=== PATIENT | female | born 1940 | race Caucasian/White ===

== ENCOUNTER 2016-04-30 10:17 | Emergency (ER) | payer MEDICARE, OTHER ==
[~2016-04-30] VITALS: Ht 160 cm; Wt 55.2 kg
[~2016-04-30 10:17] MED LIST: ALLO100T PO; ASPI81TA2 PO; ATEN-39 PO; CINA30TA2 PO; GABA-338 PO; HYDR-3989 PO; HYDR-4181 PO; LIDO5CRE14 TOP; OMEP20CA81 PO; PRAV20TA4 PO; SEVE800T9 PO
[2016-04-30 10:20] VITALS: Ht 160 cm; Wt 55.2 kg
--- OUTSIDE RECORDS SUMMARY | 2016-04-30 10:21 | XMS REPORT | Continuity of Care Document ---
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 If you do not see the information that you expected, contact Release of Information in the Health Information Management department at [phone] for further assistance in locating additional records.[facility] Active Allergies and Adverse Reactions Not on File Current Medications Not on file Active Problems Not on file Social History Tobacco Use Types Packs/Day Years Used Date Never Assessed Plan of Care Health Maintenance Due Date Last Done Comments Physical (Comprehensive) 1949 Exam Pertussis Vaccine 1953 Tetanus Vaccine 10/05/1959 Breast Cancer Screening 1982 Colorectal Cancer 1992 Screening Shingles Vaccine 2002 Osteoporosis Screening 10/05/2007 Prevnar/Pneumovax (#1) 10/05/2007 Influenza Vaccine 10/11/2015 Results from Last 3 Months Not on file
--- OUTSIDE RECORDS SUMMARY | 2016-04-30 10:21 | XMS REPORT | Referral Summary ---
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 Discharge Disposition: 01-Home or Self Care Attending Physician: Shasha Valencia MD Admitting Physician: Shasha Valencia MD Vital Signs Most recent to 1 oldest [Reference Range]: Temperature Oral 36.8 degC [35.8-37.3 degC] (07/12/15 11:16 AM) Temperature Skin 36.4 degC [36-37 degC] (07/10/15 5:08 PM) Peripheral Pulse 60 bpm Rate [60-100 bpm] (07/12/15 11:16 AM) Heart Rate Monitored 52 bpm [60-100 bpm] *LOW* (07/10/15 5:08 PM) Respiratory Rate 18 br/min [14-20 br/min] (07/12/15 11:16 AM) Blood Pressure 131/65 mmHg [90-140/60-90 mmHg] (07/12/15 11:16 AM) Mean Arterial 97 mmHg Pressure, Cuff (07/10/15 4:45 PM) Pulse Rate [60-100 64 bpm bpm] (07/12/15 9:20 AM) SpO2 91 % (07/12/15 11:16 AM) Problem List Condition Effective Dates Status Health Status Informant Acute Resolved pain(Confirmed) At risk for Resolved falls(Confirmed)1 Benign essential Resolved HTN(Confirmed) Benign essential Active hypertension(Confirm ed) Abnormal blood Active sugar(Confirmed) Bowel Resolved dysfunction(Confirme d)2 Pain in Resolved rib(Confirmed) 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) Renal dialysis Active status(Confirmed) Fluid Resolved imbalance(Confirmed) 3 Heart Resolved failure(Confirmed) Hypertension(Confirm Active ed) Impaired skin Resolved integrity(Confirmed) 4 Ineffective airway Resolved clearance(Confirmed) 5 Internal Active hemorrhoids(Confirme d) Irritable bowel Active syndrome (IBS)(Confirmed) Kidney 2009 Active disease(Confirmed) Kidney Active stones(Confirmed) Knowledge Resolved deficit(Confirmed)6 Breast 06/05/15 Active cancer(Confirmed)7 Renal dialysis Resolved status(Confirmed) Rheumatic Active fever(Confirmed) Rheumatoid Active arthritis(Confirmed) Chronic left Active shoulder pain(Confirmed) Current every day Active smoker(Confirmed) Varicella Active zoster(Confirmed) 1This problem was added by Discern Expert. 2Problem added automatically by system based on initiation of Bowel Dysfunction Plan of Care 3Problem added automatically by system based on initiation of Fluid Volume Imbalance Plan of Care 4Problem added automatically by system based on initiation of Impaired Skin Integrity Plan of Care 5Problem added automatically by system based on initiation of Ineffective Airway Clearance Plan of Care 6Problem added automatically by system based on initiation of Knowledge Deficit Plan of Care 7left, poorly differentiated ductal, with medullary features, Grade lll/lll Allergies, Adverse Reactions, Alerts Substance Reaction Severity Status tuberculin purified Tube attachment to cup Active protein derivative Tube attachment to cup Medications albuterol 90 mcg/inh inhalation powder 2 puffs, Inhalation, q4hr, # 1 Each, 0 Refill(s) Start Date: 03/28/15 Status: Ordered allopurinol 100 mg oral tablet 3 tabs, Oral, Daily, 0 Refill(s) Start Date: 08/16/13 Status: Ordered amLODIPine 5 mg oral tablet 1 tabs, Oral, Daily, # 90 tabs, 0 Refill(s) Start Date: 08/16/13 Status: Ordered atenolol 50 mg oral tablet 1 tabs, Oral, Daily, 0 Refill(s) Start Date: 08/16/13 Status: Ordered gabapentin 600 mg, Oral, Bedtime (once a day), 0 Refill(s) Start Date: 03/26/15 Status: Ordered hydrALAZINE 50 mg oral tablet 50 mg 1 tabs, Oral, BID, 0 Refill(s) Start Date: 03/26/15 Status: Ordered Nephro-Zheng 1 tabs, Oral, Daily, 0 Refill(s) Start Date: 07/06/15 Status: Ordered [place] 5 mg-325 mg oral tablet See Instructions, 1-2 tabs po q 8 hours prn. Must last 30 days., # 60 tabs, 0 Refill(s) Start Date: 06/05/15 Status: Ordered omeprazole 20 mg oral delayed release capsule 20 mg 1 caps, Oral, BID, 0 Refill(s) Start Date: 03/26/15 Status: Ordered oxyCODONE-acetaminophen 5 mg-325 mg oral tablet 1-2 tabs, Oral, q4hr, Pain Moderate (4-6), 0 Refill(s) Start Date: 07/11/15 Status: Ordered Sensipar 30 mg oral tablet 1 tabs, Oral, Daily, 0 Refill(s) Start Date: 04/28/14 Status: Ordered sevelamer carbonate 800 mg oral tablet 2 tabs, Oral, TID, with meals, 0 Refill(s) Start Date: 04/28/14 Status: Ordered Results Hematology Most recent to 1 oldest [Reference Range]: WBC [4.8-10.8 7.7 10*3/uL 10*3/uL] (07/11/15 1:59 PM) RBC [4.00-5.20] 3.38 *LOW* (07/11/15 1:59 PM) Hgb [12.0-16.0 10.9 gm/dL gm/dL] *LOW* (07/11/15 1:59 PM) Hct [37.0-47.0 %] 34.1 % *LOW* (07/11/15 1:59 PM) MCV [82.0-99.0 fL] 100.9 fL *HI* (07/11/15 1:59 PM) MCH [27.0-32.0 pg] 32.2 pg *HI* (07/11/15 1:59 PM) MCHC [32.0-36.0 32.0 gm/dL gm/dL] (07/11/15 1:59 PM) RDW [11.5-14.5 %] 13.8 % (07/11/15 1:59 PM) Platelet [150-400 200 10*3/uL 10*3/uL] (07/11/15 1:59 PM) MPV [9.4-12.4 fL] 10.7 fL (07/11/15 1:59 PM) Immature 0.1 % Granulocytes (07/11/15 1:59 PM) [0.0-1.0 %] Neutrophils [51-75 62 % %] (07/11/15 1:59 PM) Lymphocytes [20-46 28 % %] (07/11/15 1:59 PM) Monocytes [4-11 %] 9 % (07/11/15 1:59 PM) Eosinophils [0-4 %] 1 % (07/11/15 1:59 PM) Basophils [0-2 %] 0 % (07/11/15 1:59 PM) Neutro Absolute 4.80 10*3 [1.90-7.00 10*3] (07/11/15 1:59 PM) Lymph Absolute 2.16 10*3 [0.80-3.30 10*3] (07/11/15 1:59 PM) [place] Absolute 0.67 10*3 [0.30-1.00 10*3] (07/11/15 1:59 PM) Eos Absolute 0.06 10*3 [0.00-0.50 10*3] (07/11/15 1:59 PM) Baso Absolute 0.02 10*3 [0.00-0.20 10*3] (07/11/15 1:59 PM) Nucleated RBC 0.0 /100 WBC Automated [0 /100 (07/11/15 1:59 PM) WBC] Chemistry Most recent to 1 oldest [Reference Range]: Sodium Lvl [136-144 136 mEq/L mEq/L] (07/12/15 5:50 AM) Potassium Lvl 4.7 mEq/L [3.6-5.1 mEq/L] (07/12/15 5:50 AM) Chloride [99-109 100 mEq/L mEq/L] (07/12/15 5:50 AM) CO2 [22-32 mEq/L] 29 mEq/L (07/12/15 5:50 AM) AGAP [3-20] 7 (07/12/15 5:50 AM) BUN [4-20 mg/dL] 21 mg/dL *HI* (07/12/15 5:50 AM) Glucose Lvl [70-100 93 mg/dL mg/dL] (07/12/15 5:50 AM) Creatinine Lvl 4.95 mg/dL [0.44-1.03 mg/dL] *HI* (07/12/15 5:50 AM) eGFR [>60] 9 1 *ABN* (07/12/15 5:50 AM) Calcium Lvl 8.4 mg/dL [8.6-10.0 mg/dL] *LOW* (07/12/15 5:50 AM) Albumin Lvl [3.5-4.8 3.0 gm/dL gm/dL] *LOW* (07/12/15 5:50 AM) Phosphorus [2.4-4.7 4.5 mg/dL 2 mg/dL] (07/12/15 5:50 AM) Sodium Venous 134 mEq/L [136-144 mEq/L] *LOW* (07/10/15 1:00 PM) Potassium Venous 4.7 mEq/L 3 [3.6-5.1 mEq/L] (07/10/15 1:00 PM) Calcium Ionized 1.15 mmol/L Venous [1.19-1.41 *LOW* mmol/L] (07/10/15 1:00 PM) Total CO2 Venous 25 mEq/L [25-29 mEq/L] (07/10/15 1:00 PM) HGB Venous NPT 12.6 gm/dL [12.0-16.0 gm/dL] (07/10/15 1:00 PM) HCT Venous 37.0 % [37.0-47.0 %] (07/10/15 1:00 PM) Glucose Venous 88 mg/dL [70-100 mg/dL] (07/10/15 1:00 PM) BUN Venous [4-20] 29 *HI* (07/10/15 1:00 PM) Creatinine Venous 5.4 mg/dL [0.4-1.0 mg/dL] *HI* (07/10/15 1:00 PM) Venous CL [99-109 97 mEq/L mEq/L] *LOW* (07/10/15 1:00 PM) Anion Gap, [place] 12 [3-20] (07/10/15 1:00 PM) Blood Glucose, 97 mg/dL Capillary [70-100 (07/10/15 9:11 AM) mg/dL] Hep Bs Ag Negative (07/11/15 8:49 AM) 1Result Comment: Multiply eGFR results by 1.21 for race. 2Result Comment: High dosages of liposomal Amphotericin B (AmBisome) therapy or other drug preparations that use a liposomal envelope to facilitate drug delivery may cause falsely elevated results for phosphorus. 3Result Comment: This test was performed on a whole blood specimen. The presence or absence of hemolysis cannot be assessed. Hemolysis can falsely elevate potassium levels. Normals are for venous specimens only. Immunizations No data available for this section Procedures Procedure Date Related Diagnosis Body Site Injection procedure; radioactive tracer for 07/10/15 identification of sentinel node Mastectomy Modified Radical with [place] 07/10/15 Node Biopsy (Left)1 Bilateral tubal ligation Blood transfusion Colonoscopy Dialysis patient Heart cath Kidney surgery Left arm dialysis fistula Stent 1auto-populated from documented surgical case Social History Social History Type Response Smoking Status Former smoker; Type: Cigarettes Assessment and Plan No data available for this section
--- OUTSIDE RECORDS SUMMARY | 2016-04-30 10:21 | XMS REPORT | Referral Summary ---
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 Role Phone Alexei Bullock Primary Care Physician [phone] Encounter VC Date(s): 06/05/15 - 06/05/15 [facility] [address] [place] [address] [place] [id number]- Discharge Diagnosis: Breast lump on left side at 3 o'clock position Discharge Disposition: 01-Home or Self Care Attending Physician: Dion Garcia MD Admitting Physician: Dion Garcia MD Referring Physician: Merlin Bullock MD Vital Signs Most recent to 1 oldest [Reference Range]: Temperature Tympanic 37.2 degC [36.6-38.1 degC] (06/05/15 1:56 PM) Blood Pressure 142/70 mmHg [90-140/60-90 mmHg] *HI* (06/05/15 1:56 PM) Problem List Condition Effective Dates Status Health Status Informant At risk for Resolved falls(Confirmed)1 Benign essential Resolved HTN(Confirmed) Benign essential Active hypertension(Confirm ed) Abnormal blood Active sugar(Confirmed) Bowel Active dysfunction(Confirme d)2 Pain in Resolved rib(Confirmed) 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) Renal dialysis Active status(Confirmed) Fluid Active imbalance(Confirmed) 3 Heart Active failure(Confirmed) Hypertension(Confirm Active ed) Ineffective airway Active clearance(Confirmed) 4 Internal Active hemorrhoids(Confirme d) Irritable bowel Active syndrome (IBS)(Confirmed) Kidney 2009 Active disease(Confirmed) Kidney Active stones(Confirmed) Knowledge Active deficit(Confirmed)5 Renal dialysis Resolved status(Confirmed) Rheumatic Active fever(Confirmed) [...] of Ineffective Airway Clearance Plan of Care 5Problem added automatically by system based on initiation of Knowledge Deficit Plan of Care Allergies, Adverse Reactions, Alerts Substance Reaction Severity Status tuberculin purified Tube attachment to cup Active protein derivative Tube attachment to cup Medications Advair Diskus 250 mcg-50 mcg inhalation powder 1 puffs, Inhalation, BID, # 28 Each, 0 Refill(s) Start Date: 03/28/15 Status: Ordered albuterol 90 mcg/inh inhalation powder 2 puffs, Inhalation, q4hr, # 1 Each, 0 Refill(s) Start Date: 03/28/15 Status: Ordered allopurinol 100 mg oral tablet 3 tabs, Oral, Daily, 0 Refill(s) Start Date: 08/16/13 Status: Ordered amLODIPine 5 mg oral tablet 1 tabs, Oral, Daily, # 90 tabs, 0 Refill(s) Start Date: 08/16/13 Status: Ordered aspirin 81 mg, Oral, Daily, 0 Refill(s) Start Date: 03/26/15 Status: Ordered atenolol 50 mg oral tablet 1 tabs, Oral, Daily, 0 Refill(s) Start Date: 08/16/13 Status: Ordered Benadryl 25 mg, Oral, BID, as needed for itching, 0 Refill(s) Start Date: 12/11/14 Status: Ordered cholecalciferol 2,000 Intl_Units, Oral, Daily, 0 Refill(s) Start Date: 04/28/14 Status: Ordered gabapentin 600 mg, Oral, Bedtime (once a day), 0 Refill(s) Start Date: 03/26/15 Status: Ordered hydrALAZINE 50 mg oral tablet 50 mg 1 tabs, Oral, BID, 0 Refill(s) Start Date: 03/26/15 Status: Ordered [place] 5 mg-325 mg oral tablet See Instructions, 1-2 tabs po q 8 hours prn. Must last 30 days., # 60 tabs, 0 Refill(s) Start Date: 06/05/15 Status: Ordered omeprazole 20 mg oral delayed release capsule 20 mg 1 caps, Oral, BID, 0 Refill(s) Start Date: 03/26/15 Status: Ordered Pravachol 20 mg oral tablet 1 tabs, Oral, Daily, # 90 tabs, 0 Refill(s) Start Date: 08/16/13 Status: Ordered Sensipar 30 mg oral tablet 1 tabs, Oral, Daily, 0 Refill(s) Start Date: 04/28/14 Status: Ordered sevelamer carbonate 800 mg oral tablet 2 tabs, Oral, TID, with meals, 0 Refill(s) Start Date: 04/28/14 Status: Ordered Results No data available for this section Immunizations No data available for this section Procedures Procedure Date Related Diagnosis Body Site Bilateral tubal ligation Blood transfusion Colonoscopy Dialysis patient Heart cath Kidney surgery Left arm dialysis fistula Stent Social History Social History Type Response Smoking Status Former smoker; Type: Cigarettes Assessment and Plan Extracted from: Title: Ambulatory Patient Education Author: Dion Garcia MD Date: Family Medicine Breast Biopsy A breast biopsy is a procedure where a sample of breast tissue is removed from your breast. The tissue is examined under a microscope to see if cancerous cells are present. A breast biopsy is done when there is: Any undiagnosed breast mass (tumor). Nipple abnormalities, dimpling, crusting, or ulcerations. Abnormal discharge from the nipple, especially blood. Redness, swelling, and pain of the breast. Calcium deposits (calcifications) or abnormalities seen on a mammogram, ultrasound result, or results of magnetic resonance imaging (MRI). Suspicious changes in the breast seen on your mammogram. If the tumor is found to be cancerous (malignant), a breast biopsy can help to determine what the best treatment is for you. There are many different types of breast biopsies. Talk to your caregiver about your options and which type is best for you. LET YOUR CAREGIVER KNOW ABOUT: Allergies to food or medicine. Medicines taken, including vitamins, herbs, eyedrops, [id number] medicines, and creams. Use of steroids (by mouth or creams). Previous problems with anesthetics or numbing medicines. History of bleeding problems or blood clots. Previous surgery. Other health problems, including diabetes and kidney problems. Any recent colds or infections. Possibility of , if this applies. RISKS AND COMPLICATIONS Bleeding. Infection. Allergy to medicines. Bruising and swelling of the breast. Alteration in the shape of the breast. Not finding the lump or abnormality. Needing more surgery. BEFORE THE PROCEDURE Arrange for someone to drive you home after the procedure. Do not smoke for 2 weeks before the procedure. Stop smoking, if you smoke. Do not drink alcohol for 24 hours before procedure. Wear a good support bra to the procedure. PROCEDURE You may be given a medicine to numb the breast area (local anesthesia) or a medicine to make you sleep (general anesthesia) during the procedure. The following are the different types of biopsies that can be performed. Fine-needle aspirationA thin needle is attached to a syringe and inserted into the breast lump. Fluid and cells are removed and then looked at under a microscope. If the breast lump cannot be felt, an ultrasound may be used to help locate the lump and place the needle in the correct area. Core needle biopsyA wide, hollow needle (core needle) is inserted into the breast lump 36 times to get tissue samples or cores. The samples are removed. The needle is usually placed in the correct area by using an ultrasound or X-ray. Stereotactic biopsyX-ray equipment and a computer are used to analyze X-ray pictures of the breast lump. The computer then finds exactly where the core needle needs to be inserted. Tissue samples are removed. Vacuum-assisted biopsyA small incision (less than inch) is made in your breast. A biopsy device that includes a hollow needle and vacuum is passed through the incision and into the breast tissue. The vacuum gently draws abnormal breast tissue into the needle to remove it. This type of biopsy removes a larger tissue sample than a regular core needle biopsy. No stitches are needed, and there is usually little scarring. Ultrasound-guided core needle biopsyA high frequency ultrasound helps guide the core needle to the area of the mass or abnormality. An incision is made to insert the needle. Tissue samples are removed. Open biopsyA larger incision is made in the breast. Your caregiver will attempt to remove the whole breast lump or as much as possible. AFTER THE PROCEDURE You will be taken to the recovery area. If you are doing well and have no problems, you will be allowed to go home. You may notice bruising on your breast. This is normal. Your caregiver may apply a pressure dressing on your breast for 2448 hours. A pressure dressing is a bandage that is wrapped tightly around the chest to stop fluid from collecting underneath tissues. This information is not intended to replace advice given to you by your health care provider. Make sure you discuss any questions you have with your health care provider. Document Released: 01/26/2006 Document Revised: 05/23/2013 Document Reviewed: [employer] Patient Information 2015 [employer], [facility]. No follow up information was provided.
--- OUTSIDE RECORDS SUMMARY | 2016-04-30 10:21 | XMS REPORT | Referral Summary ---
Author Author [facility], [facility] Organization [facility] Address Unknown Phone Unavailable Care Team Providers Care Wireless Development Manager Name Role Phone Berniechelle Alexei Primary Care Physician [phone] Encounter VC Date(s): 12/11/14 - 12/11/14 [facility] [address] [place] [address]- Discharge Diagnosis: Acute contact dermatitis Discharge Disposition: 01-Home or Self Care Attending Physician: Dodie Ferguson PA-C Admitting Physician: Dodie Ferguson PA-C Vital Signs Most recent to 1 oldest [Reference Range]: Temperature Tympanic 37.2 degC [36.6-38.1 degC] (12/11/14 3:35 PM) Peripheral Pulse 62 bpm Rate [60-100 bpm] (12/11/14 3:35 PM) Respiratory Rate 16 br/min [14-20 br/min] (12/11/14 3:35 PM) Blood Pressure 144/70 mmHg [90-140/60-90 mmHg] *HI* (12/11/14 3:35 PM) SpO2 94 % (12/11/14 3:35 PM) Problem List Condition Effective Dates Status Health Status Informant Benign essential Resolved HTN(Confirmed) Benign essential Active hypertension(Confirm ed) Bowel Active dysfunction(Confirme d)1 Pain in Active rib(Confirmed) 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) Renal dialysis Active status(Confirmed) Fluid Active imbalance(Confirmed) 2 Heart Active failure(Confirmed) Hypertension(Confirm Active ed) Internal Active hemorrhoids(Confirme d) Irritable bowel Active syndrome (IBS)(Confirmed) Kidney 2009 Active disease(Confirmed) Kidney Active stones(Confirmed) Renal dialysis Resolved status(Confirmed) Rheumatic Active fever(Confirmed) Rheumatoid Active arthritis(Confirmed) Chronic left Active shoulder pain(Confirmed) Varicella Active zoster(Confirmed) 1Problem added automatically by system based on initiation of Bowel Dysfunction Plan of Care 2Problem added automatically by system based on initiation of Fluid Volume Imbalance Plan of Care Allergies, Adverse Reactions, Alerts Substance Reaction Severity Status tuberculin purified Tube attachment to cup Active protein derivative Tube attachment to cup Medications allopurinol 100 mg oral tablet 3 tabs, [...] Refill(s) Start Date: 04/28/14 Status: Ordered gabapentin 300 mg oral capsule See Instructions, TAKE 1 BY MOUTH IN THE MORNING AND 2 IN THE EVEN- ING, # 270 unknown unit, 2 Refill(s), eRx: [facility], TAKE 1 BY MOUTH IN THE MORNING AND 2 IN THE EVEN- ING Start Date: 10/27/14 Status: Ordered [place] 5 mg-325 mg oral tablet 1-2 tabs, Oral, TID, as needed for pain, # 60 tabs, 0 Refill(s) Start Date: 10/17/14 Status: Ordered Pravachol 20 mg oral tablet 1 tabs, Oral, Daily, # 90 tabs, 0 Refill(s) Start Date: 08/16/13 Status: Ordered predniSONE 20 mg oral tablet 20 mg 1 tabs, Oral, Daily, X 5 days, # 5 tabs, 0 Refill(s), Pharmacy: [facility] #[id number], 1 tabs Oral Daily,x5 days Start Date: 12/11/14 Stop Date: 12/16/14 Status: Ordered Sensipar 30 mg oral tablet [...] Extracted from: Title: Ambulatory Patient Education Author: Dodie Ferguson PA-C Date : 12/11/14 Allergy Contact Dermatitis Contact dermatitis is a reaction to certain substances that touch the skin. Contact dermatitis can be either irritant contact dermatitis or allergic contact dermatitis. Irritant contact dermatitis does not require previous exposure to the substance for a reaction to occur.Allergic contact dermatitis only occurs if you have been exposed to the substance before. Upon a repeat exposure, your body reacts to the substance. CAUSES Many substances can cause contact dermatitis. Irritant dermatitis is most commonly caused by repeated exposure to mildly irritating substances, such as: Makeup. Soaps. Detergents. Bleaches. Acids. Metal salts, such as nickel. Allergic contact dermatitis is most commonly caused by exposure to: Poisonous plants. Chemicals (deodorants, shampoos). Jewelry. Latex. Neomycin in triple antibiotic cream. Preservatives in products, including clothing. SYMPTOMS The area of skin that is exposed may develop: Dryness or flaking. Redness. Cracks. Itching. Pain or a burning sensation. Blisters. With allergic contact dermatitis, there may also be swelling in areas such as the eyelids, mouth, or genitals. DIAGNOSIS Your caregiver can usually tell what the problem is by doing a physical exam. In cases where the cause is uncertain and an allergic contact dermatitis is suspected, a patch skin test may be performed to help determine the cause of your dermatitis. TREATMENT Treatment includes protecting the skin from further contact with the irritating substance by avoiding that substance if possible. Barrier creams, powders, and gloves may be helpful. Your caregiver may also recommend: Steroid creams or ointments applied 2 times daily. For best results, soak the rash area in cool water for 20 minutes. Then apply the medicine. Cover the area with a plastic wrap. You can store the steroid cream in the refrigerator for a "chilly" effect on your rash. That may decrease itching. Oral steroid medicines may be needed in more severe cases. Antibiotics or antibacterial ointments if a skin infection is present. Antihistamine lotion or an antihistamine taken by mouth to ease itching. Lubricants to keep moisture in your skin. Burow's solution to reduce redness and soreness or to dry a weeping rash. Mix one packet or tablet of solution in 2 cups cool water. Dip a clean washcloth in the mixture, wring it out a bit, and put it on the affected area. Leave the cloth in place for 30 minutes. Do this as often as possible throughout the day. Taking several cornstarch or baking soda baths daily if the area is too large to cover with a washcloth. Harsh chemicals, such as alkalis or acids, can cause skin damage that is like a burn. You should flush your skin for 15 to 20 minutes with cold water after such an exposure. You should also seek immediate medical care after exposure. Bandages (dressings), antibiotics, and pain medicine may be needed for severely irritated skin. HOME CARE INSTRUCTIONS Avoid the substance that caused your reaction. Keep the area of skin that is affected away from hot water, soap, sunlight , chemicals, acidic substances, or anything else that would irritate your skin. Do not scratch the rash. Scratching may cause the rash to become infected. You may take cool baths to help stop the itching. Only take dkid-ctd-[id number] or prescription medicines as directed by your caregiver. See your caregiver for follow-up care as directed to make sure your skin is healing properly. SEEK MEDICAL CARE IF: Your condition is not better after 3 days of treatment. You seem to be getting worse. You see signs of infection such as swelling, tenderness, redness, soreness , or warmth in the affected area. You have any problems related to your medicines. Document Released: 01/23/2001 Document Revised: 04/19/2012 Document Reviewed: ExitCare Patient Information 2015 [employer]. This information is not intended to replace advice given to you by your health care provider. Make sure you discuss any questions you have with your health care provider. No follow up information was provided. Extracted from: Title: Office Visit Note Author: Dodei Ferguson PA-C Date: 12/11/14 Assessment/Plan Acute contact dermatitis I believe this is due to some allergen she was exposed [place]. She is given Solu-Medrol 80mg IM in clinic and will continue on prednisone for 5 days. She can also continue taking Benadryl prn. She is advised to go to ED if she has any tongue swelling or feelings of throat closing. Ordered: Office Visit Level 3 Est 42659 Swelling See above Orders: predniSONE, 20 mg 1 tabs, Oral, Daily, X 5 days, # 5 tabs, 0 Refill(s) , Pharmacy: [facility] #[id number], 1 tabs Oral Daily,x5 days
--- OUTSIDE RECORDS SUMMARY | 2016-04-30 10:21 | XMS REPORT ---
Author Author Jai Suarez Organization [facility] Address [address] [place] [address] Care Team Providers Care Paint Pourer Name Role Phone Jai Suarez Unavailable [phone] PROBLEMS Type Condition ICD9-CM Code OVJ60-SY Code Onset Dates Condition Status SNOMED Code Problem Dyslipidemia E78.5 Active 975785718 Problem PVD (peripheral vascular disease) I73.9 Active 816648038 Problem Hypertension I10 Active 21627312 Problem Chronic anticoagulation Z79.01 Active 942541525 Problem Pre-operative cardiovascular examination V72.81 Active 088439296 Problem Dyspnea on effort R06.09 Active 54366351 Problem Atrial fibrillation I48.91 Active 46713597 Problem CAD (coronary artery disease) I25.10 Active 88895975 Problem Persistent atrial fibrillation I48.1 Active 527039664 Problem Pre-operative cardiovascular examination Z01.810 Active 793717661 Problem Hypertension 401.9 Active 05107800 Problem Peripheral Vascular Disease 443.9 Active 747660437 Problem Carotid Bruit 785.9 Active 915665134 Problem Murmur 785.2 Active 368619780 Problem Aortic Valve Stenosis 424.1 Active 32022771 Problem End stage renal disease 585.6 Active 58229600 Problem Coronary Artery Disease 414.01 Active 17293795 Problem Mitral regurgitation I34.0 Active 69412000 Problem Dyslipidemia 272.4 Active 643721507 Problem Carotid bruit R09.89 Active 109387907 ALLERGIES Unknown Allergies SOCIAL HISTORY No smoking Hx information available PLAN OF CARE VITAL SIGNS MEDICATIONS Medication Instructions Dosage Frequency Start Date End Date Duration Status Coumadin 5 MG Orally Once a day or as directed 1 tablet 90 days Active RESULTS No Results PROCEDURES No Known procedures IMMUNIZATIONS No Known Immunizations
--- OUTSIDE RECORDS SUMMARY | 2016-04-30 10:21 | XMS REPORT | Continuity of Care Document ---
Author Author Kobe FRANCO, Merlin ANG [facility] Ambulatory Address [address] [place] [address] Dr India Blackman [facility] [place] [address] Phone Care Team Providers Care Driver Trainee Name Role Phone Merlin Bullock PP Unavailable Payers Payer name Insurance type Covered green party ID Authorization(s) Unknown Problems Condition Effective Dates (start - stop) Clinical Status Cervicalgia - *Acute Lumbago - *Acute Pain in joint involving shoulder region - *Acute Pain in limb - *Acute Hypertension, Benign - *Chronic Other and unspecified hyperlipidemia - *Chronic RENAL DIALYSIS STATUS - *Chronic CHRONIC PAIN NEC - *Chronic RENAL & URETERAL DIS NOS - Fever - *Acute Bronchitis, acute - *Acute Tobacco use - *Chronic Hypertension, benign - *Controlled Renal dialysis status - *Controlled Bronchitis, Acute - *Acute Pneumonia - *Acute COPD - *Chronic Tobacco Abuse - *Chronic RENAL DIALYSIS STATUS - *Chronic COPD - Chronic Hypertension, benign - *Chronic Renal dialysis status - *Chronic Renal failure, unspecified - *Chronic RENAL DIALYSIS STATUS - *Chronic Other and unspecified hyperlipidemia - *Chronic OTHER ABNORMAL GLUCOSE - *Chronic Tobacco Abuse - *Resolved Gout, unspecified - *Chronic Diabetes with other specified manifestations, type II or unspecified type, not stated as uncontrolled - *Chronic Hypertension, Benign - *Chronic RENAL DIALYSIS STATUS - *Chronic COPD - *Chronic Tobacco Abuse - *Chronic RENAL DIALYSIS STATUS - *Chronic Headache - *Chronic Hypertension, Benign - *Chronic Tobacco Abuse - *Chronic Pneumonia - *Acute Renal dialysis status - *Chronic Renal dialysis status - *Chronic Special screening for malignant neoplasms, colon - *Routine Pneumonia - *Acute RENAL DIALYSIS STATUS - *Chronic Tobacco Abuse - *Chronic Well woman exam - *Routine Other specified pre-operative examination - *Acute Hypertension, benign - *Chronic Renal dialysis status - *Chronic Gout, unspecified - *Chronic Nonsp octaviano skn test wo tb - *Chronic RENAL DIALYSIS STATUS - *Chronic Family History Family Member Diagnosis Age At Onset Status Mother (Unknown) Hypertension Yes Father (Unknown) old age Yes Mother (Unknown) old age Yes Social History Social History Element Description Quantity Unknown Allergies, Adverse Reactions, Alerts Substance Reaction Severity Status Unknown Medications Medication Instructions Dosage Effective Dates (start - stop) Status [place] 5 mg-325 mg tablet take 1 - 2 Tablet by oral route every 8 hours as needed for pain 0 - Active Claritin 10 mg tablet Take 1 tablet by mouth twice a day. - Active atenolol 50 mg tablet 1 tab po qd - Active amlodipine 5 mg tablet take 1 tablet (5MG) by oral route every day 5 MG - Active Renvela 0.8 gram oral powder packet take 1 packet (0.8G) by oral route 3 times every day mixed with 30 mL of water, stir and drink within 30 minutes, with meals 0.8 G - Active allopurinol 100 mg tablet 3 tabs po qd - Active Oxygen conserving device per patients choice. - Active Pravachol 20 mg tablet take 1 tablet (20MG) by oral route every day 20 MG - Active Plavix 75 mg tablet take 1 tablet (75MG) by oral route every day 75 MG May - Active Neurontin 300 mg capsule Take 1 capsule in the morning and 2 capsules by mouth at bedtime. - Active gabapentin 300 mg capsule Take 1 tab in the morning, and 2 tabs in the evening. - Active Immunizations Vaccine Date Status Comments Unknown Results Test Name Date and Time Measure Units Reference Range Abnormal Flag Comments Unknown Vital Signs Date / Time: Height Weight Pulse Rate Blood Pressure Temperature /13:44:00 63.00 in 134.00 lbs 160/80 mm[Hg] 98.2 F Procedures Procedure Date Unknown Encounters Encounter Location Date Patient Visit [facility] Patient Visit Conversion Patient Visit [facility] Patient Visit [facility] Patient Visit [facility] Patient Visit [facility] Patient Visit [facility] Patient Visit [facility] Patient Visit [facility] Patient Visit [facility] Patient Visit [facility] Patient Visit [facility] Patient Visit [facility] Patient Visit [facility] Patient Visit [facility] Advance Directives Directive Effective Date Unknown
--- OUTSIDE RECORDS SUMMARY | 2016-04-30 10:22 | XMS REPORT | Referral Summary ---
Author Author [facility], [facility] Organization [facility] Address Unknown Phone Unavailable Care Team Providers Care Maintenance Mgr Name Role Phone Alexei Bullock Primary Care Physician [phone] Encounter VC Date(s): 03/26/15 - 03/26/15 [facility] [place] [address]- Discharge Disposition: 01-Home or Self Care Attending Physician: Merlin Bullock MD Admitting Physician: Merlin Bullock MD Vital Signs Most recent to 1 oldest [Reference Range]: Peripheral Pulse 68 bpm Rate [60-100 bpm] (03/26/15 3:45 PM) Blood Pressure 140/60 mmHg [90-140/60-90 mmHg] (03/26/15 3:45 PM) SpO2 90 % (03/26/15 3:45 PM) Problem List Condition Effective Dates Status Health Status Informant At risk for Active falls(Confirmed)1 Benign essential Resolved HTN(Confirmed) Benign essential Active hypertension(Confirm ed) Bowel Active dysfunction(Confirme d)2 Pain in Active rib(Confirmed) Dependence on renal [...] of Ineffective Airway Clearance Plan of Care Allergies, Adverse Reactions, Alerts [...] 0 Refill(s) Start Date: 03/26/15 Status: Ordered [place] 5 mg-325 mg oral tablet 1-2 tabs, Oral, TID, as needed for pain, # 60 tabs, 0 Refill(s) Start Date: 12/22/14 Status: Ordered omeprazole 20 mg oral delayed [...] Extracted from: Title: Ambulatory Patient Education Author: Merlin Bullock MD Date: Allergy Cough, Adult A cough is a reflex that helps clear your throat and airways. It can help heal the body or may be a reaction to an irritated airway. A cough may only last 2 or 3 weeks (acute) or may last more than 8 weeks (chronic). CAUSES Acute cough: Viral or bacterial infections. Chronic cough: Infections. Allergies. Asthma. Post-nasal drip. Smoking. Heartburn or acid reflux. Some medicines. Chronic lung problems (COPD). Cancer. SYMPTOMS Cough. Fever. Chest pain. Increased breathing rate. High-pitched whistling sound when breathing (wheezing). Colored mucus that you cough up (sputum). TREATMENT A bacterial cough may be treated with antibiotic medicine. A viral cough must run its course and will not respond to antibiotics. Your caregiver may recommend other treatments if you have a chronic cough. HOME CARE INSTRUCTIONS Only take zpcu-djm-zbaglye or prescription medicines for pain, discomfort , or fever as directed by your caregiver. Use cough suppressants only as directed by your caregiver. Use a cold steam vaporizer or humidifier in your bedroom or home to help loosen secretions. Sleep in a semi-upright position if your cough is worse at night. Rest as needed. Stop smoking if you smoke. SEEK IMMEDIATE MEDICAL CARE IF: You have pus in your sputum. Your cough starts to worsen. You cannot control your cough with suppressants and are losing sleep. You begin coughing up blood. You have difficulty breathing. You develop pain which is getting worse or is uncontrolled with medicine. You have a fever. MAKE SURE YOU: Understand these instructions. Will watch your condition. Will get help right away if you are not doing well or get worse. This information is not intended to replace advice given to you by your health care provider. Make sure you discuss any questions you have with your health care provider. Document Released: 07/25/2011 Document Revised: 04/19/2012 Document Reviewed: ExitCare Patient Information 2015 [employer] [facility]. No follow up information was provided. Extracted from: Title: Office Visit Note Author: Merlin Bullock MD Date: 03/26/15 Assessment/Plan Benign essential hypertension This issue was reviewed, appears stable, and current therapy continued except as mentioned. Appropriate lab was reviewed from the most recent appropriate entry and lab was ordered if needed in the cpoe /nursing orders, and follow up recommended generally in 90 days and no later then six months. Cough To ER for evaluationfor CAP. Renal dialysis status Normaldialysis earlier and sent here by dialysis nurses. Shortness of breath Seeabove. Oximetries tfao21-61% on RA at rest. Addendum Nursing staff took her directly to the [facility] for evaluation. 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
--- OUTSIDE RECORDS SUMMARY | 2016-04-30 10:22 | XMS REPORT ---
Author Author Jai Suarez Organization [employer] Address Unknown Phone Unavailable Care Team Providers Care Supervisor Throwing Department Name Role Phone Jai Suarez CP Unavailable Allergies No Known Allergies Problems Problem Type Condition Code Onset Dates Condition Status Problem Aortic Valve Stenosis 424.1 Active Problem Carotid bruit R09.89 Active Problem End stage renal disease 585.6 Active Problem Atrial fibrillation I48.91 Active Problem Mitral regurgitation I34.0 Active Problem Pre-operative cardiovascular examination Z01.810 Active Problem Hypertension I10 Active Problem Dyslipidemia E78.5 Active Problem CAD (coronary artery disease) I25.10 Active Problem PVD (peripheral vascular disease) I73.9 Active Problem Murmur 785.2 Active Problem Hypertension 401.9 Active Problem Peripheral Vascular Disease 443.9 Active Problem Pre-operative cardiovascular examination V72.81 Active Problem Coronary Artery Disease 414.01 Active Problem Carotid Bruit 785.9 Active Problem Dyslipidemia 272.4 Active Medications Medication Code System Code Instructions Start Date End Date Status Dosage Lab Order NDC 0 Orders Oct 18, 2015 as directed Results No Known Results Summary Purpose [employer] Submission
--- OUTSIDE RECORDS SUMMARY | 2016-04-30 10:22 | XMS REPORT | Referral Summary ---
Author Author [facility], [facility] Medicine Organization [facility] Address Unknown Phone Unavailable Care Team Providers Care Electrical Tester Battery Name Role Phone Alexei Bullock Primary Care Physician [phone] Encounter VC Date(s): 05/24/15 - 05/24/15 [facility] [place] [place] [address]- Discharge Disposition: 01-Home or Self Care Attending Physician: Merlin Bullock MD Admitting Physician: Merlin Bullock MD Vital Signs Most recent to 1 oldest [Reference Range]: Blood Pressure 150/70 mmHg [90-140/60-90 mmHg] *HI* (05/24/15 3:53 PM) Problem List Condition Effective Dates Status [...] 0 Refill(s) Start Date: 03/26/15 Status: Ordered [place] 5 mg-325 mg oral tablet 1-2 tabs, [...] Patient Education Author: Merlin Bullock MD Date: Family Medicine Breast Biopsy A [...] medicine. Medicines taken, including vitamins, herbs, eyedrops, owds-egl-npjcqjs medicines, and creams. Use of steroids (by [...] 05/23/2013 Document Reviewed: ExitCare Patient Information 2015 [employer]. No follow up information was provided. Extracted from: Title: Office Visit Note Author: Merlin Bullock MD Date: 05/24/15 Assessment/Plan Abnormal blood sugar This issue was reviewed, appears stable, and current therapy continued except as mentioned. Appropriate lab was reviewed from the most recent appropriate entry and lab was ordered if needed in the cpoe/nursing orders, and follow up recommended generally in 90 days and no later then six months. Lab with dialysis has been normal per her. Benign essential hypertension This issue was reviewed, appears stable, and current therapy continued except as mentioned. Appropriate lab was reviewed from the most recent appropriate entry and lab was ordered if needed in the cpoe /nursing orders, and follow up recommended generally in 90 days and no later then six months. The patient reports their blood pressure has been stable at home and is not having any significant or related problems. There has been no chest pain, chest pressure, soa/mendoza. Breast mass, left 45 minutes were utilized in care and coordination for this patient. Greater then 50% of the time was used for counseling and/or coordination of the patients care. We tried for some time to arrange a diagnostic mammogram/sonogram and biopsy at [facility] and were unable to arrange that since [facility] insisted they did NOT have any old records of mammograms for comparison. I personally arranged a consult with Dr. GARCIA for 05/31 at 11:30 to expedite the patient's care. If other options for biopsy materialize those will be pursued. She is limited in her ability to travel to [place] for care. Current every day smoker Dependence on renal dialysis This issue was reviewed, appears stable, and current therapy continued except as mentioned. Appropriate lab was reviewed from the most recent appropriate entry and lab was ordered if needed in the cpoe /nursing orders, and follow up recommended generally in 90 days and no later then six months.
--- OUTSIDE RECORDS SUMMARY | 2016-04-30 10:22 | XMS REPORT | Referral Summary ---
Author Author [facility] Organization [facility] Address Unknown Phone Unavailable Care Team Providers Care Wooden Furniture Polisher Name Role Phone BerniechelleAlxeei Primary Care Physician [phone] Encounter VC Date(s): 08/06/15 - 08/06/15 [facility] 1944 [place], [place] [address] Discharge Diagnosis: S/p mastectomy Discharge Disposition: 01-Home or Self Care Attending Physician: Shasha Valencia MD Admitting Physician: Shasha Valencia MD Vital Signs No data available for this section Problem List Condition Effective Dates Status Health [...] 0 Refill(s) Start Date: 07/06/15 Status: Ordered [place] 5 mg-325 mg oral tablet See Instructions, [...] Procedures Procedure Date Related Diagnosis Body Site Biopsy or excision of lymph node(s); open, 07/10/15 deep axillary node(s)1 Left Breast Mastectomy, partial (eg, 07/10/15 lumpectomy, tylectomy, quadrantectomy, segmentectomy);2 Mastectomy Modified Radical with [place] 07/10/15 Node Biopsy (Left)3 Bilateral tubal ligation Blood transfusion Colonoscopy Dialysis patient Heart cath Kidney surgery Left arm dialysis fistula Stent 1Dx: D36.0 2Dx: D05.12 3auto-populated from documented surgical case Social History Social History Type Response Smoking Status Former smoker; Type: Cigarettes Assessment and Plan Extracted from: Title: BREAST CLINIC NOTE Author: Shasha Valencia MD Date: 08/06/15 Assessment/Plan 1.S/p mastectomy 1. The patient is a 74-year-old woman who presents back the office in follow-up of her left mastectomy. She has healed nicely and there is no evidence of seroma on examination. 2. I went over some exerciseswith her and told her to start stretching that left side. If she regains motion and her discomfort resolves, then she should see me back in 6 monthsfor recheck. If she feels as though she is still having continued discomfort or problems with movement of that arm, she is to return sooner. Ordered: Postoperative Est [id number]
--- OUTSIDE RECORDS SUMMARY | 2016-04-30 10:22 | XMS REPORT | Referral Summary ---
Author Author [facility] Organization [facility] Address Unknown Phone Unavailable Care Team Providers Care Track Template Maker Name Role Phone Alexei Bullock Primary Care Physician [phone] Encounter VC Date(s): 10/17/14 - 10/17/14 [facility], [address] [place] [id number] Discharge Disposition: 01-Home or Self Care Attending Physician: Merlin Bullock MD Admitting Physician: Merlin Bullock MD Vital Signs Most recent to 1 oldest [Reference Range]: Blood Pressure 160/70 mmHg [90-140/60-90 mmHg] *HI* (10/17/14 11:09 AM) Problem List Condition Effective Dates Status Health Status Informant At risk for Resolved falls(Confirmed)1 Benign essential Resolved HTN(Confirmed) Benign essential Active hypertension(Confirm ed) Bowel Active dysfunction(Confirme d)2 Pain in Resolved [...] 0 Refill(s) Start Date: 03/26/15 Status: Ordered [place] 5 mg-325 mg oral tablet 1-2 tabs, [...] Refill(s) Start Date: 04/28/14 Status: Ordered Results Chemistry Most recent to 1 oldest [Reference Range]: Chol [0-199 mg/dL] 179 mg/dL (10/17/14 11:37 AM) Trig [0-149 mg/dL] 98 mg/dL (10/17/14 11:37 AM) HDL [40-84 mg/dL] 63 mg/dL (10/17/14 11:37 AM) LDL [0-130 mg/dL] 96 mg/dL (10/17/14 11:37 AM) VLDL Cholesterol 20 mg/dL [0-28 mg/dL] (10/17/14 11:37 AM) Cardiac Risk 2.8 [0.0-5.0] (10/17/14 11:37 AM) Immunizations No data available for this section Procedures Procedure Date Related Diagnosis Body Site Bilateral tubal ligation Blood transfusion Colonoscopy Dialysis patient Heart cath Kidney surgery Left arm dialysis fistula Stent Social History Social History Type Response Smoking Status Former smoker; Type: Cigarettes Assessment and Plan Extracted from: Title: Ambulatory Patient Education Author: Merlin Bullock MD Date: 10/17/14 Family Medicine Arthralgia Your caregiver has diagnosed you as suffering from an arthralgia. Arthralgia means there is pain in a joint. This can come from many reasons including: Bruising the joint which causes soreness (inflammation) in the joint. Wear and tear on the joints which occur as we grow older (osteoarthritis). Overusing the joint. Various forms of arthritis. Infections of the joint. Regardless of the cause of pain in your joint, most of these different pains respond to anti-inflammatory drugs and rest. The exception to this is when a joint is infected, and these cases are treated with antibiotics, if it is a bacterial infection. HOME CARE INSTRUCTIONS Rest the injured area for as long as directed by your caregiver. Then slowly start using the joint as directed by your caregiver and as the pain allows. Crutches as directed may be useful if the ankles, knees or hips are involved. If the knee was splinted or casted, continue use and care as directed. If an stretchy or elastic wrapping bandage has been applied today, it should be removed and re-applied every 3 to 4 hours. It should not be applied tightly, but firmly enough to keep swelling down. Watch toes and feet for swelling, bluish discoloration, coldness, numbness or excessive pain. If any of these problems (symptoms) occur, remove the harry bandage and re-apply more loosely. If these symptoms persist, contact your caregiver or return to this location. For the first 24 hours, keep the injured extremity elevated on pillows while lying down. Apply ice for 15-20 minutes to the sore joint every couple hours while awake for the first half day. Then 03-04 times per day for the first 48 hours. Put the ice in a plastic bag and place a towel between the bag of ice and your skin. Wear any splinting, casting, elastic bandage applications, or slings as instructed. Only take [id number] or prescription medicines for pain, discomfort, or fever as directed by your caregiver. Do not use aspirin immediately after the injury unless instructed by your physician. Aspirin can cause increased bleeding and bruising of the tissues. If you were given crutches, continue to use them as instructed and do not resume weight bearing on the sore joint until instructed. Persistent pain and inability to use the sore joint as directed for more than 2 to 3 days are warning signs indicating that you should see a caregiver for a follow-up visit as soon as possible. Initially, a hairline fracture (break in bone) may not be evident on X-rays. Persistent pain and swelling indicate that further evaluation, non-weight bearing or use of the joint (use of crutches or slings as instructed), or further X-rays are indicated. X-rays may sometimes not show a small fracture until a week or 10 days later. Make a follow-up appointment with your own caregiver or one to whom we have referred you. A radiologist (specialist in reading X-rays) may read your X-rays. Make sure you know how you are to obtain your X-ray results. Do not assume everything is normal if you do not hear from us. SEEK MEDICAL CARE IF: Bruising, swelling, or pain increases. SEEK IMMEDIATE MEDICAL CARE IF: Your fingers or toes are numb or blue. The pain is not responding to medications and continues to stay the same or get worse. The pain in your joint becomes severe. You develop a fever over 102 F (38.9 C). It becomes impossible to move or use the joint. MAKE SURE YOU: Understand these instructions. Will watch your condition. Will get help right away if you are not doing well or get worse. Document Released: 01/26/2006 Document Revised: 04/19/2012 Document Reviewed: [facility] Patient Information 2015 [employer] [facility]. This information is not intended to replace advice given to you by your health care provider. Make sure you discuss any questions you have with your health care provider. No follow up information was provided. Extracted from: Title: Office Visit Note Author: Merlin Bullock MD Date: 10/17/14 Assessment/Plan Chronic right shoulder pain Xray, consult, cortisone offered and declined. Refill norco. Hypertension This issue is stable and appropriate refills, lab, and f/u have been discussed. The patient reports their blood pressure has been stable at home and is not having any significant or related problems. There has been no chest pain, chest pressure, soa/mendoza. Renal dialysis status CXR, quantiferon gold, lipid profile per dialysis request. Orders: HYDROcodone-acetaminophen, 1-2 tabs, Oral, TID, as needed for pain, # 60 tabs, 0 Refill(s)
--- OUTSIDE RECORDS SUMMARY | 2016-04-30 10:22 | XMS REPORT | Referral Summary ---
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 Discharge Disposition: 01-Home or Self Care Attending Physician: Shasha Valencia MD Admitting Physician: Shasha Valencia MD Referring Physician: Merlin Bullock MD Vital Signs Most recent to 1 oldest [Reference Range]: Blood Pressure 172/70 mmHg [90-140/60-90 mmHg] *HI* (07/05/15 8:27 AM) Problem List Condition Effective Dates Status [...] disease(Confirmed) Kidney Active stones(Confirmed) Knowledge Active deficit(Confirmed)5 Breast 06/05/15 Active cancer(Confirmed)6 Renal dialysis Resolved status(Confirmed) Rheumatic Active fever(Confirmed) [...] initiation of Knowledge Deficit Plan of Care 6left, poorly differentiated ductal, with medullary features, Grade [...] 0 Refill(s) Start Date: 03/26/15 Status: Ordered [place] 5 mg-325 mg oral tablet See Instructions, [...] to 1 oldest [Reference Range]: WBC [4.8-10.8 5.9 10*3/uL 10*3/uL] (07/05/15 10:19 AM) RBC [4.00-5.20] 3.94 *LOW* (07/05/15 10:19 AM) Hgb [12.0-16.0 13.0 gm/dL gm/dL] (07/05/15 10:19 AM) Hct [37.0-47.0 %] 39.3 % (07/05/15 10:19 AM) MCV [82.0-99.0 fL] 99.7 fL *HI* (07/05/15 10:19 AM) MCH [27.0-32.0 pg] 33.0 pg *HI* (07/05/15 10:19 AM) MCHC [32.0-36.0 33.1 gm/dL gm/dL] (07/05/15 10:19 AM) RDW [11.5-14.5 %] 13.5 % (07/05/15 10:19 AM) Platelet [150-400 156 10*3/uL 10*3/uL] (07/05/15 10:19 AM) MPV [8.8-14.8 fL] 11.3 fL (07/05/15 10:19 AM) Immature 0.0 % Granulocytes (07/05/15 10:19 AM) [0.0-1.0 %] Neutrophils [51-75 61 % %] (07/05/15 10:19 AM) Lymphocytes [20-46 29 % %] (07/05/15 10:19 AM) Monocytes [4-11 %] 10 % (07/05/15 10:19 AM) Eosinophils [0-4 %] 0 % (07/05/15: AM) Basophils [0-2 %] 1 % (07/05/15: AM) Neutro Absolute 3.61 10*3 [1.90-7.00 10*3] (07/05/15: AM) Lymph Absolute 1.68 10*3 [0.80-3.30 10*3] (07/05/15 10:19 AM) Angelina Absolute 0.56 10*3 [0.30-1.00 10*3] (07/05/15 10: AM) Eos Absolute 0.01 10*3 [0.00-0.50 10*3] (07/05/15 10: AM) Baso Absolute 0.03 10*3 [0.00-0.20 10*3] (07/05/15: AM) Chemistry Most recent to 1 oldest [Reference Range]: Sodium Lvl [135-144 133 mEq/L mEq/L] *LOW* (07/05/15: AM) Potassium Lvl 4.9 mEq/L [3.5-5.2 mEq/L] (07/05/15: AM) Chloride [99-111 96 mEq/L mEq/L] *LOW* (07/05/15: AM) CO2 [22-31 mEq/L] 28 mEq/L (07/05/15: AM) AGAP [3-20] 9 (07/05/15 10: AM) BUN [10-20 mg/dL] 33 mg/dL *HI* (07/05/15 10: AM) Glucose Lvl [70-99 101 mg/dL mg/dL] *HI* (07/05/15 10: AM) Creatinine Lvl 5.04 mg/dL [0.57-1.11 mg/dL] *HHI* (07/05/15 10: AM) eGFR [>60 mL/min] 8 mL/min 1 *ABN* (07/05/15 10:19 AM) Calcium Lvl 9.0 mg/dL [8.9-10.5 mg/dL] (07/05/15 10:19 AM) Albumin Lvl [3.4-4.8 4.5 gm/dL gm/dL] (07/05/15 10:19 AM) Total Protein 7.0 gm/dL [6.2-8.1 gm/dL] (07/05/15 10:19 AM) Globulin [1.8-4.0 2.5 gm/dL gm/dL] (07/05/15 10:19 AM) ALT [0-55 U/L] 15 U/L (07/05/15 10:19 AM) AST [5-34 U/L] 21 U/L (07/05/15 10:19 AM) Alk Phos [40-150 149 U/L U/L] (07/05/15 10:19 AM) Bili Total [0.2-1.2 0.7 mg/dL mg/dL] (07/05/15 10:19 AM) 1Result Comment: Multiply eGFR results by 1.21 for race. Immunizations No data available for this section Procedures Procedure Date Related Diagnosis Body Site Bilateral tubal ligation Blood transfusion Colonoscopy Dialysis patient Heart cath Kidney surgery Left arm dialysis fistula Stent Social History Social History Type Response Smoking Status Former smoker; Type: Cigarettes Assessment and Plan Extracted from: Title: Ambulatory Patient Education Author: Shasha Valencia MD Date: Obstetrics and Gynecology Breast Cancer Breast cancer is an abnormal growth of tissue (tumor) in the breast that is cancerous (malignant). Unlike noncancerous (benign) tumors, malignant tumors can spread to other parts of your body. The most common type of female breast cancer begins in the milk ducts (ductal carcinoma). Breast cancer is one of the most common types of cancer in women. CAUSES The exact cause of female breast cancer is unknown. RISK FACTORS Age older than 55 years. Family history of breast cancer. Having the BRCA1 and BRCA2 genes. Personal history of radiation exposure. Obesity. Menstrual periods that begin before age 12 years. Menopause that begins after age 55 years. for the first time at the age of 35 years or older. Using hormone therapy. Drinking more than one alcoholic drink per day. SIGNS AND SYMPTOMS A painless lump in your breast. Changes in the size or shape of your breast. Breast skin changes, such as puckering or dimpling. Nipple abnormalities, such as scaling, crustiness, redness, or pulling in (retraction). Nipple discharge that is bloody or clear. DIAGNOSIS Your health care provider will ask about your medical history. He or she may also perform a number of procedures, such as: A physical exam. This will involve feeling the tissue around the breast and under the arms. Taking a sample of nipple discharge. The sample will be examined under a microscope. Breast X-rays (mammogram), breast ultrasound exams, or an MRI. Taking a tissue sample (biopsy) from the breast. The sample will be examined under a microscope to look for cancer cells. Your cancer will be staged to determine its severity and extent. Staging is a careful attempt to find out the size of the tumor, whether the cancer has spread , and if so, to what parts of the body. You may need to have more tests to determine the stage of your cancer: Stage 0The tumor has not spread to other breast tissue. Stage IThe cancer is only found in the breast. The tumor may be up to in (2 cm) wide. Stage IIThe cancer has spread to nearby lymph nodes. The tumor may be up to 2 in (5 cm) wide. Stage IIIThe cancer has spread to more distant lymph nodes. The tumor may be larger than 2 in (5 cm) wide. Stage IVThe cancer has spread to other parts of the body, such as the bones, brain, liver, or lungs. TREATMENT Depending on the type and stage, female breast cancer may be treated with one or more of the following therapies: Surgery to remove just the tumor (lumpectomy) or the entire breast ( mastectomy). Lymph nodes may also be removed. Radiation therapy, which uses high-energy rays to kill cancer cells. Chemotherapy, which is the use of drugs to kill cancer cells. Hormone therapy, which involves taking medicine to adjust the hormone levels in your body. You may take medicine to decrease your estrogen levels. This can help stop cancer cells from growing. HOME CARE INSTRUCTIONS Take medicines only as directed by your health care provider. Maintain a healthy diet. Consider joining a support group. This may help you learn to cope with the stress of having breast cancer. Keep all follow-up appointments as directed by your health care provider. SEEK MEDICAL CARE IF: You have a sudden increase in pain. You notice a new lump in either breast or under your arm. You develop swelling in either arm or hand. You lose weight without trying. You have a fever. You notice new fatigue or weakness. SEEK IMMEDIATE MEDICAL CARE IF: You have chest pain or trouble breathing. You faint. This information is not intended to replace advice given to you by your health care provider. Make sure you discuss any questions you have with your health care provider. Document Released: 05/06/2006 Document Revised: 06/12/2014 Document Reviewed: [facility] Patient Information [address] [facility]. No follow up information was provided. 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 74-year-old woman presents to the office with a new diagnosis of left breast cancer. It is located at the 3:00 position, approximately 4 cm from the nipple. On sonogram, it is easily visible. The cancer is grade 3 and tumor markers are essentially triple negative. 2. Surgical options were discussed with patient. This included lumpectomy or mastectomy. We discussed the benefits of each and the disadvantages of each. She understands that with a lumpectomy she would preserve her breast, but there is a risk her margins will be close or involved and she would require further surgery. We also discussed that in most situations, with a lumpectomy radiation is required. With a lumpectomy there potentially could be a slight cosmetic deformity to the breast in the form of retraction or volume loss. With a mastectomy, the breast will be removed. Margins are not typically an issue with a mastectomy. She most likely would not require radiation with a mastectomy, unless the cancer is an advanced stage. With mastectomy she may or may not have reconstruction depending on her choice. If she decides on reconstruction we will set her up to see a plastic surgeon. After this discussion, she has decided to proceed to a mastectomy. Avoiding radiation may be the best option in her because of thedialysis fistulain the upperleft extremityas well as her cardiac issues. 3. We then discussed evaluation of her lymph nodes with a sentinel node biopsy. I described the technique and how it is performed. If the sentinel node is positive with a lumpectomy, then we typically do not need to complete an axillary node dissection because the patient will receive radiation. If the sentinel lymph node is positive with a mastectomy, then we would do a completion axillary node dissection because the patient typically would not receive radiation. If the patient has 4 or more positive lymph nodes with a mastectomy, and she would receive radiation. The patient understands and does wish to proceed to sentinel node biopsy. She understands the risks are, but are not limited to bleeding, infection, damage to neurologic structures which can cause pain, numbness, tingling, or shoulder mobility problems, and there is also a risk of lymphedema and seroma formation. 4. We then discussed radiation treatment and chemotherapy. She understands that after surgery she will need to speak to a medical oncologist. The decision on whether the patient will require her chemotherapy, hormonal therapy or radiation therapy will be made once the pathology report is known after surgery. 5. Questions were asked and answered and I spent approximately an hour with the patient in discussion. We are going to schedule her for aleft mastectomy and sentinel node biopsy with possible axillary node dissectionon July 10, 2015 [facility]. Ordered: CBC w/ Differential Comprehensive Metabolic Panel NM Inj. for Identification [place] Node Office Visit Level 5 [place] [id number] XR Chest 2 Views Pre-procedure lab exam Ordered: CBC w/ Differential Comprehensive Metabolic Panel
--- OUTSIDE RECORDS SUMMARY | 2016-04-30 10:23 | XMS REPORT | Referral Summary ---
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 Discharge Diagnosis: Osteoporosis Discharge Diagnosis: Generalized OA Discharge Diagnosis: Benign essential hypertension Discharge Diagnosis: CRF (chronic renal failure) Discharge Diagnosis: Abnormal blood sugar Discharge Diagnosis: Current every day smoker Discharge Disposition: 01-Home or Self Care Attending Physician: Merlin Bullock MD Admitting Physician: Merlin Bullock MD Vital Signs Most recent to 1 oldest [Reference Range]: Peripheral Pulse 104 bpm Rate [60-100 bpm] *HI* (12/04/15 10:40 AM) Blood Pressure 140/60 mmHg [90-140/60-90 mmHg] (12/04/15 10:40 AM) SpO2 94 % (12/04/15 10:40 AM) Problem List Condition Effective Dates Status Health Status Informant Acute Resolved pain(Confirmed) Atrial Active fibrillation(Confirm ed) CAD (coronary artery Active disease)(Confirmed) At risk for Resolved falls(Confirmed)1 Benign essential Resolved HTN(Confirmed) Benign essential Active hypertension(Confirm ed) Abnormal blood Active sugar(Confirmed) Bowel Resolved dysfunction(Confirme d)2 Pain in Resolved rib(Confirmed) CRF (chronic renal Active failure)(Confirmed) 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) Renal dialysis Active status(Confirmed) Supplemental oxygen Active dependent(Confirmed) Fluid Resolved imbalance(Confirmed) 3 Heart Resolved failure(Confirmed) Hypertension(Confirm Active ed) Impaired skin Resolved integrity(Confirmed) 4 Ineffective airway Resolved clearance(Confirmed) 5 Internal Active hemorrhoids(Confirme d) Irritable bowel Active syndrome (IBS)(Confirmed) Kidney 2009 Active disease(Confirmed) Kidney Active stones(Confirmed) Knowledge Resolved deficit(Confirmed)6 Breast 06/05/15 Active cancer(Confirmed)7 Osteoporosis(Confirm Active ed) Generalized Active OA(Confirmed) Renal dialysis Resolved status(Confirmed) Rheumatic Active fever(Confirmed) [...] Start Date: 08/16/13 Status: Ordered gabapentin 600 mg oral tablet 600 mg, Oral, Bedtime (once a day), # 90 tabs, 0 Refill(s), Pharmacy: [facility] #[id number], 600 mg Oral Bedtime (once a day) Start Date: 08/30/15 Status: Ordered hydrALAZINE 50 mg oral tablet 50 mg 1 tabs, Oral, BID, 0 Refill(s) Start Date: 03/26/15 Status: Ordered Miscellaneous DME DME Item Portable oxygen tank [phone], See Instructions, # 1 Each, 0 Refill(s), Supply Start Date: 09/25/15 Status: Ordered Nephro-Zheng 1 tabs, Oral, Daily, 0 Refill(s) Start Date: 07/06/15 Status: Ordered [place] 5 mg-325 mg oral tablet See Instructions, 1-2 tabs po q 8 hours prn. Must last 30 days., # 60 tabs, 0 Refill(s) Start Date: 12/04/15 Status: Ordered omeprazole 20 mg oral delayed release capsule 20 mg 1 caps, Oral, BID, 0 Refill(s) Start Date: 03/26/15 Status: Ordered Sensipar 30 mg oral tablet 1 tabs, Oral, Daily, 0 Refill(s) Start Date: 04/28/14 Status: Ordered sevelamer carbonate 800 mg oral tablet 2 tabs, Oral, TID, with meals, 0 Refill(s) Start Date: 04/28/14 Status: Ordered warfarin Daily, 2.5 mg daily every day except for when she takes 1.25 mg for a-fib, 0 Refill(s) Start Date: 12/04/15 Status: Ordered Results No data available for this section Immunizations Vaccine Date Refusal Reason influenza virus vaccine, inactivated 11/10/15 pneumococcal 13-valent conjugate vaccine 11/10/15 Procedures Procedure Date Related Diagnosis Body Site Biopsy or excision of lymph node(s); open, 07/10/15 deep axillary node(s)1 Left Breast Mastectomy, partial (eg, 07/10/15 lumpectomy, tylectomy, quadrantectomy, segmentectomy);2 Mastectomy Modified Radical with [place] 07/10/15 Node Biopsy (Left)3 Bilateral tubal ligation Blood transfusion Colonoscopy Dialysis patient Heart cath Kidney surgery Left arm dialysis fistula Stent 1Dx: D36.0 2Dx: D05.12 3auto-populated from documented surgical case Social History Social History Type Response Smoking Status Former smoker; Type: Cigarettes Assessment and Plan Extracted from: Title: Ambulatory Patient Education Author: Merlin Bullock MD Date: Cardiovascular Atrial Fibrillation Atrial fibrillation is a type of irregular heart rhythm (arrhythmia). During atrial fibrillation, the upper chambers of the heart (atria) quiver continuously in a chaotic pattern. This causes an irregular and often rapid heart rate. Atrial fibrillation is the result of the heart becoming overloaded with disorganized signals that tell it to beat. These signals are normally released one at a time by a part of the right atrium called the sinoatrial node. They then travel from the atria to the lower chambers of the heart (ventricles), causing the atria and ventricles to contract and pump blood as they pass. In atrial fibrillation, parts of the atria outside of the sinoatrial node also release these signals. This results in two problems. First, the atria receive so many signals that they do not have time to fully contract. Second, the ventricles, which can only receive one signal at a time, beat irregularly and out of rhythm with the atria. There are three types of atrial fibrillation: Paroxysmal. Paroxysmal atrial fibrillation starts suddenly and stops on its own within a week. Persistent. Persistent atrial fibrillation lasts for more than a week. It may stop on its own or with treatment. Permanent. Permanent atrial fibrillation does not go away. Episodes of atrial fibrillation may lead to permanent atrial fibrillation. Atrial fibrillation can prevent your heart from pumping blood normally. It increases your risk of stroke and can lead to heart failure. CAUSES Heart conditions, including a heart attack, heart failure, coronary artery disease, and heart valve conditions. Inflammation of the sac that surrounds the heart (pericarditis). Blockage of an artery in the lungs (pulmonary embolism). Pneumonia or other infections. Chronic lung disease. Thyroid problems, especially if the thyroid is overactive ( hyperthyroidism). Caffeine, excessive alcohol use, and use of some illegal drugs. Use of some medicines, including certain decongestants and diet pills. Heart surgery. defects. Sometimes, no cause can be found. When this happens, the atrial fibrillation is called lone atrial fibrillation. The risk of complications from atrial fibrillation increases if you have lone atrial fibrillation and you are age 60 years or older. RISK FACTORS Heart failure. Coronary artery disease. Diabetes mellitus. High blood pressure (hypertension). Obesity. Other arrhythmias. Increased age. SIGNS AND SYMPTOMS A feeling that your heart is beating rapidly or irregularly. A feeling of discomfort or pain in your chest. Shortness of breath. Sudden light-headedness or weakness. Getting tired easily when exercising. Urinating more often than normal (mainly when atrial fibrillation first begins). In paroxysmal atrial fibrillation, symptoms may start and suddenly stop. DIAGNOSIS Your health care provider may be able to detect atrial fibrillation when taking your pulse. Your health care provider may have you take a test called an ambulatory electrocardiogram (ECG). An ECG records your heartbeat patterns over a 24-hour period. You may also have other tests, such as: Transthoracic echocardiogram (TTE). During echocardiography, sound waves are used to evaluate how blood flows through your heart. Transesophageal echocardiogram (BEA). Stress test. There is more than one type of stress test. If a stress test is needed, ask your health care provider about which type is best for you. Chest X-ray exam. Blood tests. Computed tomography (CT). TREATMENT Treatment may include: Treating any underlying conditions. For example, if you have an overactive thyroid, treating the condition may correct atrial fibrillation. Taking medicine. Medicines may be given to control a rapid heart rate or to prevent blood clots, heart failure, or a stroke. Having a procedure to correct the rhythm of the heart: Electrical cardioversion. During electrical cardioversion, a controlled, low-energy shock is delivered to the heart through your skin. If you have chest pain, very low blood pressure, or sudden heart failure, this procedure may need to be done as an emergency. Catheter ablation. During this procedure, heart tissues that send the signals that cause atrial fibrillation are destroyed. Surgical ablation. During this surgery, thin lines of heart tissue that carry the abnormal signals are destroyed. This procedure can either be an open- heart surgery or a minimally invasive surgery. With the minimally invasive surgery, small cuts are made to access the heart instead of a large opening. Pulmonary venous isolation. During this surgery, tissue around the veins that carry blood from the lungs (pulmonary veins) is destroyed. This tissue is thought to carry the abnormal signals. HOME CARE INSTRUCTIONS Take medicines only as directed by your health care provider. Some medicines can make atrial fibrillation worse or recur. If blood thinners were prescribed by your health care provider, take them exactly as directed. Too much blood-thinning medicine can cause bleeding. If you take too little, you will not have the needed protection against stroke and other problems. Perform blood tests at home if directed by your health care provider. Perform blood tests exactly as directed. Quit smoking if you smoke. Do not drink alcohol. Do not drink caffeinated beverages such as coffee, soda, and some teas. You may drink decaffeinated coffee, soda, or tea. Maintain a healthy weight.Do not use diet pills unless your health care provider approves. They may make heart problems worse. Follow diet instructions as directed by your health care provider. Exercise regularly as directed by your health care provider. Keep all follow-up visits as directed by your health care provider. This is important. PREVENTION The following substances can cause atrial fibrillation to recur: Caffeinated beverages. Alcohol. Certain medicines, especially those used for breathing problems. Certain herbs and herbal medicines, such as those containing ephedra or ginseng. Illegal drugs, such as cocaine and amphetamines. Sometimes medicines are given to prevent atrial fibrillation from recurring. Proper treatment of any underlying condition is also important in helping prevent recurrence. SEEK MEDICAL CARE IF: You notice a change in the rate, rhythm, or strength of your heartbeat. You suddenly begin urinating more frequently. You tire more easily when exerting yourself or exercising. SEEK IMMEDIATE MEDICAL CARE IF: You have chest pain, abdominal pain, sweating, or weakness. You feel nauseous. You have shortness of breath. You suddenly have swollen feet and ankles. You feel dizzy. Your face or limbs feel numb or weak. You have a change in your vision or speech. MAKE SURE YOU: Understand these instructions. Will watch your condition. Will get help right away if you are not doing well or get worse. This information is not intended to replace advice given to you by your health care provider. Make sure you discuss any questions you have with your health care provider. Document Released: 01/26/2006 Document Revised: 02/16/2015 Document Reviewed: [employer] Interactive Patient Education 2016 [employer] No follow up information was provided. Extracted from: Title: Office Visit Note Author: Merlin Bullock MD Date: 12/04/15 Assessment/Plan Abnormal blood sugar This issue was reviewed, appears stable, and current therapy continued except as mentioned. Appropriate lab was reviewed from the most recent appropriate entry and lab was ordered if needed in the cpoe/nursing orders, and follow up recommended generally in 90 days and no later then six months. Lab stable. Atrial fibrillation This issue was reviewed, appears stable, and current therapy continued except as mentioned. Appropriate lab was reviewed from the most recent appropriate entry and lab was ordered if needed in the cpoe/nursing orders, and follow up recommended generally in 90 days and no later then six months. Seeing Dr. Suarez at [facility]. Benign essential hypertension This issue was reviewed, [...] no chest pain, chest pressure, soa/mendoza. Breast cancer The patient's issue is nearly or completely resolved. There is no further issues or testing desired by them at this time. Seeing Dr. Alicea. CAD (coronary artery disease) This issue was reviewed, appears stable, and current therapy continued except as mentioned. Appropriate lab was reviewed from the most recent appropriate entry and lab was ordered if needed in the cpoe /nursing orders, and follow up recommended generally in 90 days and no later then six months. [address] Dr. Suarez at [facility]. Notes fomr 11/05/2015 reviewed. Has a bare metal stent in the LAD and usingASA. CRF (chronic renal failure) The patient's issue is nearly or completely resolved. There is no further issues or testing desired by them at this time. Seeing Dr. Louis. Current every day smoker Smoking Cessation was discussed. The patient is welcome to f/u for therapy or medication for smoking cessation at any time that they are willing to quit. IMPRESSION: Stable cardiomegaly. No new or acute abnormality is demonstrated. [1] Dependence on renal dialysis Seeing . Generalized OA This issue was reviewed, appears stable, and current therapy continued except as mentioned. Appropriate lab was reviewed from the most recent appropriate entry and lab was ordered if needed in the cpoe/nursing orders, and follow up recommended generally in 90 days and no later then six months. Noro refilled. Osteoporosis We discussed several options for treatment for this condition. The patient declined any changes or other treatments at this time. Awaiting suggestions from Dr. Louis about recommendations. Not a candidate at this time for prolia or reclast. Mialcalcin? DXA test results for Ms. Yvonne Temple performed on 10/23/2015 The Right femoral neck showed the lowest score of all the areas scanned. The Right femoral neck has a T-score of -3.00 , 61.00 % of a young adult. The diagnosis is OSTEOPOROSIS. [2] Flu vaccine and pneumovax given at dialysis.
--- OUTSIDE RECORDS SUMMARY | 2016-04-30 10:23 | XMS REPORT ---
Author Author Jai Suarez Organization [facility] Address [address] [place] [address] Care Team Providers Care Eradicator Name Role Phone Jai Suarez Unavailable [phone] PROBLEMS Type Condition ICD9-CM Code [id number] Code Onset Dates Condition Status SNOMED Code Problem Dyslipidemia E78.5 Active 949969944 Problem PVD (peripheral vascular disease) I73.9 Active 680881241 Problem Hypertension I10 Active 64100597 Problem Chronic anticoagulation Z79.01 Active 412158409 Problem Pre-operative cardiovascular examination V72.81 Active 821474550 Problem Dyspnea on effort R06.09 Active 17352075 Problem Atrial fibrillation I48.91 Active 33614609 Problem CAD (coronary artery disease) I25.10 Active 17018565 Problem Persistent atrial fibrillation I48.1 Active 802312756 Problem Pre-operative cardiovascular examination Z01.810 Active 326097631 Problem Hypertension 401.9 Active 00227395 Problem Peripheral Vascular Disease 443.9 Active 909624651 Problem Carotid Bruit 785.9 Active 208178155 Problem Murmur 785.2 Active 802829647 Problem Aortic Valve Stenosis 424.1 Active 05481733 Problem End stage renal disease 585.6 Active 40105988 Problem Coronary Artery Disease 414.01 Active 70985190 Problem Mitral regurgitation I34.0 Active 30585994 Problem Dyslipidemia 272.4 Active 793988815 Problem Carotid bruit R09.89 Active 590096075 ALLERGIES Unknown Allergies SOCIAL HISTORY No smoking Hx information available PLAN OF CARE VITAL SIGNS MEDICATIONS Medication Instructions Dosage Frequency Start Date End Date Duration Status Lab Order Orders as directed Apr, Active RESULTS No Results PROCEDURES No Known procedures IMMUNIZATIONS No Known Immunizations
--- OUTSIDE RECORDS SUMMARY | 2016-04-30 10:23 | XMS REPORT | Referral Summary ---
Author Author [facility] [place], [facility] Organization [facility] [place] [facility] Address Unknown Phone Unavailable Care Team Providers Care Disability Services Coordinator Name Role Phone Alexei Bullock Primary Care Physician [phone] Encounter VC Date(s): 08/30/15 - 08/30/15 [facility] [place] [place] [address]- Discharge Disposition: 01-Home or Self Care Attending Physician: Merlin Bullock MD Admitting Physician: Merlin Bullock MD Vital Signs Most recent to 1 oldest [Reference Range]: Peripheral Pulse 110 bpm Rate [60-100 bpm] *HI* (08/30/15 9:06 AM) Blood Pressure 120/80 mmHg [90-140/60-90 mmHg] (08/30/15 9:06 AM) SpO2 94 % (08/30/15 9:06 AM) Problem List Condition Effective Dates Status [...] day), # 90 tabs, 0 Refill(s), Pharmacy: [facility] #[id number], 600 mg Oral Bedtime (once a day) Start Date: 08/30/15 Status: Ordered hydrALAZINE 50 mg oral tablet 50 mg 1 tabs, Oral, BID, 0 Refill(s) Start Date: 03/26/15 Status: Ordered Nephro-Zheng 1 tabs, Oral, Daily, 0 Refill(s) Start Date: 07/06/15 Status: Ordered [place] 5 mg-325 mg oral tablet See Instructions, 1-2 tabs po q 8 hours prn. Must last 30 days., # 60 tabs, 0 Refill(s) Start Date: 08/30/15 Status: Ordered omeprazole 20 mg oral delayed [...] tylectomy, quadrantectomy, segmentectomy);2 Mastectomy Modified Radical with Callahan 07/10/15 Node Biopsy (Left)3 Bilateral tubal ligation Blood transfusion Colonoscopy Dialysis patient Heart cath Kidney surgery Left arm dialysis fistula Stent 1Dx: D36.0 2Dx: D05.12 3auto-populated from documented surgical case Social History Social History Type Response Smoking Status Former smoker; Type: Cigarettes Assessment and Plan Extracted from: Title: Ambulatory Patient Education Author: Merlin Bullock MD Date: Nephrology Dialysis Dialysis is a procedure that replaces some of the work healthy kidneys do. It is done when you lose about 8590% of your kidney function. It may also be done earlier if your symptoms may be improved by dialysis. During dialysis, wastes, salt, and extra water are removed from the blood, and the levels of certain chemicals in the blood (such as potassium) are maintained. Dialysis is done in sessions. Dialysis sessions are continued until the kidneys get better. If the kidneys cannot get better, such as in end-stage kidney disease, dialysis is continued for life or until you receive a new kidney (kidney transplant). There are two types of dialysis: hemodialysis and peritoneal dialysis. WHAT IS HEMODIALYSIS? Hemodialysis is a type of dialysis in which a machine called a dialyzer is used to filter the blood. Before beginning hemodialysis, you will have surgery to create a site where blood can be removed from the body and returned to the body (vascular access). There are three types of vascular accesses: Arteriovenous fistula. To create this type of access, an artery is connected to a vein (usually in the arm). A fistula takes 16 months to develop after surgery. If it develops properly, it usually lasts longer than the other types of vascular accesses. It is also less likely to become infected and cause blood clots. Arteriovenous graft. To create this type of access, an artery and a vein in the arm are connected with a tube. A graft may be used within 23 weeks of surgery. A venous catheter. To create this type of access, a thin, flexible tube ( catheter) is placed in a large vein in your neck, chest, or groin. A catheter may be used right away. It is usually used as a temporary access when dialysis needs to begin immediately. During hemodialysis, blood leaves the body through your access. It travels through a tube to the dialyzer, where it is filtered. The blood then returns to your body through another tube. Hemodialysis is usually performed by a health care provider at a hospital or dialysis center three times a week. Visits last about 34 hours. It may also be performed with the help of another person at home with training. WHAT IS PERITONEAL DIALYSIS? Peritoneal dialysis is a type of dialysis in which the thin lining of the abdomen (peritoneum) is used as a filter. Before beginning peritoneal dialysis, you will have surgery to place a catheter in your abdomen. The catheter will be used to transfer a fluid called dialysate to and from your abdomen. At the start of a session, your abdomen is filled with dialysate. During the session, wastes, salt, and extra water in the blood pass through the peritoneum and into the dialysate. The dialysate is drained from the body at the end of the session. The process of filling and draining the dialysate is called an exchange. Exchanges are repeated until you have used up all the dialysate for the day. Peritoneal dialysis may be performed by you at home or at almost any other location. It is done every day. You may need up to five exchanges a day. The amount of time the dialysate is in your body between exchanges is called a dwell. The dwell depends on the number of exchanges needed and the characteristics of the peritoneum. It usually varies from 1.53 hours. You may go about your day normally between exchanges. Alternately, the exchanges may be done at night while you sleep, using a machine called a cycler. WHICH TYPE OF DIALYSIS SHOULD I CHOOSE? Both hemodialysis and peritoneal dialysis have advantages and disadvantages. Talk to your health care provider about which type of dialysis would be best for you. Your lifestyle and preferences should be considered along with your medical condition. In some cases, only one type of dialysis may be an option. Advantages of hemodialysis It is done less often than peritoneal dialysis. Someone else can do the dialysis for you. If you go to a dialysis center, your health care provider will be able to recognize any problems right away. If you go to a dialysis center, you can interact with others who are having dialysis. This can provide you with emotional support. Disadvantages of hemodialysis Hemodialysis may cause cramps and low blood pressure. It may leave you feeling tired on the days you have the treatment. If you go to a dialysis center, you will need to make weekly appointments and work around the center's schedule. You will need to take extra care when traveling. If you go to a dialysis center, you will need to make special arrangements to visit a dialysis center near your destination. If you are having treatments at home, you will need to take the dialyzer with you to your destination. You will need to avoid more foods than you would need to avoid on peritoneal dialysis. Advantages of peritoneal dialysis It is less likely than hemodialysis to cause cramps and low blood pressure. You may do exchanges on your own wherever you are, including when you travel. You do not need to avoid as many foods as you do on hemodialysis. Disadvantages of peritoneal dialysis It is done more often than hemodialysis. Performing peritoneal dialysis requires you to have dexterity of the hands. You must also be able to lift bags. You will have to learn sterilization techniques. You will need to practice them every day to reduce the risk of infection. WHAT CHANGES WILL I NEED TO MAKE TO MY DIET DURING DIALYSIS? Both hemodialysis and peritoneal dialysis require you to make some changes to your diet. For example, you will need to limit your intake of foods high in the minerals phosphorus and potassium. You will also need to limit your fluid intake. Your dietitian can help you plan meals. A good meal plan can improve your dialysis and your health. WHAT SHOULD I EXPECT WHEN BEGINNING DIALYSIS? Adjusting to the dialysis treatment, schedule, and diet can take some time. You may need to stop working and may not be able to do some of the things you normally do. You may feel anxious or depressed when beginning dialysis. Eventually, many people feel better overall because of dialysis. Some people are able to return to work after making some changes, such as reducing work intensity. WHERE CAN I FIND MORE INFORMATION? National Kidney Foundation: www.kidney.org [employer]: www.aakp.org [employer]: www.kidneyfund.org This information is not intended to replace advice given to you by your health care provider. Make sure you discuss any questions you have with your health care provider. Document Released: 04/18/2003 Document Revised: 02/16/2015 Document Reviewed: ExitCare Patient Information 2016 [email or web address]. No follow up information was provided. Extracted from: Title: Office Visit Note Author: Merlin Bullock MD Date: 08/30/15 Assessment/Plan Abnormal blood sugar This issue was reviewed, appears stable, and current therapy continued except as mentioned. Appropriate lab was reviewed from the most recent appropriate entry and lab was ordered if needed in the cpoe/nursing orders, and follow up recommended generally in 90 days and no later then six months. Benign essential hypertension This issue was reviewed, appears stable, and current therapy continued except as mentioned. Appropriate lab was reviewed from the most recent appropriate entry and lab was ordered if needed in the cpoe /nursing orders, and follow up recommended generally in 90 days and no later then six months. The patient had an elevated blood pressure reading and is to monitor their bp and call with a report if consistently > 140/90. Breast cancer Seeing Dr. RUSHING. 1.S/p mastectomy 1. The patient is a 74-year-old woman who presents back the office in follow-up of her left mastectomy. She has healed nicely andthere is no evidence of seroma on examination. [...] is to return sooner. Ordered: Postoperative Est [id number] [1] Dependence on renal dialysis This issue was reviewed, appears stable, and current therapy continued except as mentioned. Appropriate lab was reviewed from the most recent appropriate entry and lab was ordered if needed in the cpoe /nursing orders, and follow up recommended generally in 90 days and no later then six months. Heart failure The patient's issue is nearly or completely resolved. There is no further issues or testing desired by them at this time. Supplemental oxygen dependent This issue was reviewed, appears stable, and current therapy continued except as mentioned. Appropriate lab was reviewed from the most recent appropriate entry and lab was ordered if needed in the cpoe /nursing orders, and follow up recommended generally in 90 days and no later then six months. Recert signed (CMN) from recent hospital records per nurse. Orders: HYDROcodone-acetaminophen, See Instructions, 1-2 tabs po q 8 hours prn. Must last 30 days., # 60 tabs, 0 Refill(s) Addendum Was in [place] 07/2015 and started on oxygen. O2Sat was 86% on RA on and those by records have not been scanned in yet. Merlin Bullock MD on August 30, 2015 09:24:20 CDT
--- OUTSIDE RECORDS SUMMARY | 2016-04-30 10:23 | XMS REPORT ---
Author Author Jai Suarez Organization [employer] Address Unknown Phone Unavailable Care Team Providers Care Second Operator Name Role Phone Jai Suarez CP Unavailable Allergies, Adverse Reactions, Alerts Substance Reaction Event Type TB test Info Not Available Non Drug Allergy Problems Problem Type Condition Code Onset Dates Condition Status Assessment Coronary Artery Disease 414.01 Active Problem Pre-operative cardiovascular examination V72.81 Active Problem Murmur 785.2 Active Problem Aortic Valve Stenosis 424.1 Active Problem Dyslipidemia 272.4 Active Problem End stage renal disease 585.6 Active Problem Hypertension 401.9 Active Problem Carotid Bruit 785.9 Active Problem Coronary Artery Disease 414.01 Active Problem Peripheral Vascular Disease 443.9 Active Assessment Hypertension 401.9 Active Assessment Aortic Valve Stenosis 424.1 Active Assessment End stage renal disease 585.6 Active Assessment Peripheral Vascular Disease 443.9 Active Assessment Dyslipidemia 272.4 Active Assessment Carotid Bruit 785.9 Active Medications Medication Code System Code Instructions Start Date End Date Status Dosage Aspirin [facility] [address]607-[address]04 81 MG Orally Once a day 1 tablet EMLA [facility] [address]-14 prior to dialysis not defined Atenolol [facility] [address]-24 50 MG Orally Once a day 1 tablet Pravastatin Sodium [facility] [address]-41 20 MG Orally Once a day 1 tablet Sensipar [facility] [address]-65 30 MG Orally Once a day 1 tablet Omeprazole [facility] [address]-37 20 MG Orally Once a day 2 capsule Renvela [facility] [address]-55 800 MG Orally Three times a day 2 tablets Hydralazine HCl [facility] [address]-83 50 MG Orally Twice a day 1 tablet Allopurinol [facility] [address]-95 100 MG Orally Once a day 1 tablet Gabapentin [facility] [address]-56 300 MG Orally qhs 2 tablet Procedures Procedure Coding System Code Date Office Visit, Est Pt., Level 4 CPT-4 53362 Oct 05, 2014 Vital Signs Date/Time: Oct 05, 2014 BMI 22.03 Index Weight 124.4 lbs Height 5 ft 3 in in Cardiac Monitoring Heart Rate 60 /min Oximetry 93% % Blood Pressure Diastolic 60 mm Hg Blood Pressure Systolic 148 mm Hg Results No Known Results Summary Purpose [employer] Submission
--- OUTSIDE RECORDS SUMMARY | 2016-04-30 10:23 | XMS REPORT | Continuity of Care Document ---
Author Author [facility] Organization [facility] Address Unknown Phone Unavailable Support Name Relationship Address Phone DANIEL OROURKE MD Caregiver [address] [place] [address] Unavailable JENNYFER HARMON MD Caregiver [address] [place] [address] [place] [address] Unavailable ALTUM, MARLEN Next Of Kin [address] [place], [place] [id number] Insurance Providers Guarantor Yvonne Temple Address [address] [place] [address] Email DENIED/NO TO PT PORTAL Payer [employer] [facility] Policy Number [id number] Subscriber's Name Yvonne Temple Relationship 18 Self Effective Date 07 Payer Medicare Policy Number [id number] Subscriber's Name TempleYvonne Relationship 18 Self Effective Date 07 Problems Active Problems Medical Problem Onset Date Status Abrasion of knee, right Unknown Acute COPD (chronic obstructive pulmonary disease) Unknown Acute Distal radial fracture Unknown Acute Dyspnea Unknown Acute Sprain of great toe of right foot Unknown Acute Medications Current Home Medications Medication Dose Units Route Directions Days Qty Instructions Start Date Allopurinol 100 Mg Tablet 200 Mg Oral Daily 03/26/15 Aspirin 81 Mg Tab.chew 81 Mg Oral Daily 03/26/15 Atenolol 50 Mg Tablet 50 Mg Oral Daily 04/07/11 Cinacalcet Hcl (Sensipar) 30 Mg Tablet 30 Mg Oral Give With Supper 04/05/12 Gabapentin 300 Mg Capsule 600 Mg Oral Bedtime 12/18/14 Hydralazine Hcl 50 Mg Tablet 50 Mg Oral Twice A Day 12/18/14 Hydrocodone/Acetaminophen (Hydrocodon-Acetaminophen 5-325) 1 Each Tablet 1 Tab Oral Every 6 Hours as needed for Pain 12/18/14 Lidocaine/Prilocaine (Emla Cream) 5 Gm Cream..g. 1 Applic Topically Every Thursday, Thursday, And Thursday03/26/15 Omeprazole (Prilosec) 20 Mg Capsule.dr 20 Mg Oral Twice A Day 04/02 Pravastatin Sodium 20 Mg Tablet 20 Mg Oral Daily Take 1 tablet, by mouth, daily at bedtime. 03/26/15 Sevelamer Carbonate (Renvela) 800 Mg Tablet 1,600 Mg Oral Three Times A Day 04/05/12 Social History Social History Problem Response Recorded Date/Time Onset Date Status Chewing Tobacco Status No 04/05/2012 12:02pm Not Applicable Not Applicable Hx Substance Use No 03/26/2015 5:14pm Not Applicable Not Applicable Hx Alcohol Use Y RARE 03/26/2015 5:14pm Not Applicable Not Applicable Tobacco Usage none 03/26/2015 5:11pm Not Applicable Not Applicable Hospital Discharge Instructions Current inpatient/outpatient. Discharge instructions are currently unavailable. Plan of Care Current inpatient/outpatient. The plan of care is currently unavailable Functional Status No functional status results. Allergies, Adverse Reactions, Alerts Allergen Type Severity Reaction Status Last Updated tuberculin,purif.prot.deriv. Allergy Unknown Active 03/26/15 Immunizations Query Response on File Recorded Date/Time Hx Influenza Vaccination Y had flu shot this fall04/05/12 12:02pm Hx Pneumococcal Vaccination Y 201104/05/12 12:02pm Hx Influenza Vaccination Y had flu shot this fall04/05/12 12:02pm Influenza Vaccine Hx 11/2303/26/15 5:14pm Vital Signs No known vital signs results. Results Laboratory Results Test Name Result Units Flags Reference Collection Date/Time Result Date/ Time Comments Prothromb Time International Ratio 2.59 H 0.76-1.04 02/06/2016 6:00am 02/06/2016 10:14am THERAPUTIC RANGE=2.00-3.00 FOR ANTI-THROMBOSIS THERAPUTIC RANGE=2.50-3.50 FOR IMPLANTED VALVE Procedures No known history of procedures. Encounters Encounter Location Arrival/Admit Date Discharge/Depart Date Attending Provider Registered Clinic [facility] 02/06/16 10:05am DANIEL OROURKE MD Discharged Recurring [facility] 01/23/16 10:45am 02/09/16 11: 17pm DANIEL OROURKE MD Discharged Recurring [facility] 01/09/16 10:13am 02/09/16 11: 29pm DANIEL OROURKE MD
--- OUTSIDE RECORDS SUMMARY | 2016-04-30 10:23 | XMS REPORT | Referral Summary ---
Author Organization Unknown Address Unknown Phone Unavailable Care Team Providers Care Scourer Name Role Phone Alexei Bullock Primary Care Physician [phone] Encounter VC Date(s): 03/14/14 - 03/14/14 [facility], [address] [place] [address]- Discharge Diagnosis: Benign essential HTN Discharge Diagnosis: Dyspnea Discharge Diagnosis: Renal dialysis status Discharge Diagnosis: Chronic obstructive pulmonary disease (COPD) Discharge Diagnosis: Chronic left shoulder pain Discharge Disposition: Home or Self Care Attending Physician: Merlin Bullock MD Admitting Physician: Merlin Bullock MD Vital Signs Most recent to 1 oldest [Reference Range]: Blood Pressure 120/60 mmHg [90-140/60-90 mmHg] (03/14/14 2:24 PM) Most recent to 1 oldest [Reference Range]: SpO2 94 % (03/14/14 2:24 PM) Problem List Condition Effective Dates Status Health Status Informant Benign essential Resolved HTN(Confirmed) Benign essential Active hypertension(Confirm ed) Pain in Active rib(Confirmed) 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) Renal dialysis Active status(Confirmed) Heart Active failure(Confirmed) Renal dialysis Resolved status(Confirmed) Chronic left Active shoulder pain(Confirmed) Allergies, Adverse Reactions, Alerts No Known Allergies Medications allopurinol 100 mg oral tablet 3 tabs, Oral, Daily, 0 Refill(s) Start Date: 08/16/13 Status: Ordered amLODIPine 5 mg oral tablet 1 tabs, Oral, Daily, # 90 tabs, 0 Refill(s) Start Date: 08/16/13 Status: Ordered Anoro Ellipta 62.5 mcg-25 mcg inhalation powder 1 puffs, Inhalation, Daily, # 30 Each, 0 Refill(s) Start Date: 03/14/14 Status: Ordered atenolol 50 mg oral tablet 1 tabs, Oral, Daily, 0 Refill(s) Start Date: 08/16/13 Status: Ordered Claritin 10 mg, Oral, Daily, 0 Refill(s) Start Date: 08/16/13 Status: Ordered gabapentin 300 mg oral capsule See Instructions, 1 cap in the morning, and 2 caps in the evening., # 270 caps, 3 Refill(s), Pharmacy: [facility], 1 cap in the morning, and 2 caps in the evening. Special Instructions: 1 cap in the morning, and 2 caps in the evening. Start Date: 01/09/14 Status: Ordered [place] 5 mg-325 mg oral tablet 1-2 tabs, Oral, TID, as needed for pain, MUST LAST 30 DAYS - NEEDS APPT PRIOR TO ADDITIONAL REFILLS, # 60 tabs, 0 Refill(s) Special Instructions: MUST LAST 30 DAYS - NEEDS APPT PRIOR TO ADDITIONAL REFILLS Start Date: 01/03/14 Status: Ordered Plavix 75 mg oral tablet 1 tabs, Oral, Daily, # 90 tabs, 0 Refill(s) Start Date: 08/16/13 Status: Ordered Pravachol 20 mg oral tablet 1 tabs, Oral, Daily, # 90 tabs, 0 Refill(s) Start Date: 08/16/13 Status: Ordered Renvela 0.8 g oral powder for reconstitution 1 Each, Oral, TID, # 90 Each, 0 Refill(s) Start Date: 08/16/13 Status: Ordered Results No data available for this section Immunizations No data available for this section Procedures No data available for this section Social History Social History Type Response Smoking Status Former smoker; Type: Cigarettes Assessment and Plan Extracted from: Title: Ambulatory Patient Education Author: Merlin Bullock MD Date: 03/14/14 Family Medicine Arthralgia Your caregiver has diagnosed you as suffering from an arthralgia. Arthralgia means there is pain in a joint. This can come from many reasons including: Bruising the joint which causes soreness (inflammation ) in the joint. Wear and tear on the joints which occur as we grow older (osteoarthritis ) . Overusing the joint. Various forms of arthritis. [...] excessive pain. If any of these problems (symptoms ) occur, remove the harry bandage and re-apply more loosely. If these symptoms persist, contact your caregiver or return to this location. For the first 24 hours, keep the injured extremity elevated on pillows while lying down. Apply ice for 15-20 minutes to the sore joint every couple hours while awake for the first half day. Then 3-4 times per day for the first 48 hours. Put the ice in a plastic bag and place a towel between the bag of ice and your skin. Wear any splinting, casting, elastic bandage applications, or slings as instructed. Only take [id number] or prescription medicines for pain, discomfort, or [...] Released: 01/26/2006 Document Revised: 04/19/2012 Document Reviewed: [employer] Patient Information 2014 [employer]. No follow up information was provided. Extracted from: Title: Office Visit Note Author: Merlin Bullock MD Date: 03/14/14 Assessment/Plan Benign essential HTN This issue is stable and appropriate refills, lab, and f/ u have been discussed. Chronic left shoulder pain Cause unclear. Related to dialysis per her. Consider subclavian steal? Await consult and discuss with her lie detector operator also. Lab and xray if not improving. Mostly numb and not seeming to correlate with radiculopathy from her neck and not arthritic n behavior per her. Chronic obstructive pulmonary disease (COPD) See below. Dyspnea CXR recommended and deferred. Cardiology consult pending anyway. No distress. To ER if worse. Samples and demo or anoro one puff daily given. Renal dialysis status This issue is stable and appropriate refills, lab, and f /u have been discussed. Orders: XR Chest 2 Views
--- OUTSIDE RECORDS SUMMARY | 2016-04-30 10:23 | XMS REPORT | Referral Summary ---
Author Author [facility] Organization [facility] Address Unknown Phone Unavailable Care Team Providers Care Cost Control Supervisor Name Role Phone Alexei Bullock Primary Care Physician [phone] Encounter VC Date(s): 12/22/14 - 12/22/14 [facility] [address] [place] [id number] Discharge Disposition: 01-Home or Self Care Attending Physician: Merlin Bullock MD Admitting Physician: Merlin Bullock MD Vital Signs No data available for [...] every day Active smoker(Confirmed) Varicella Active zoster(Confirmed) 1Problem added automatically by [...] EVEN- ING Start Date: 10/27/14 Status: Ordered Wilton 5 mg-325 mg oral tablet 1-2 tabs, Oral, TID, as needed for pain, # 60 tabs, 0 Refill(s) Start Date: 12/22/14 Status: Ordered Pravachol 20 mg oral tablet [...] Author: Merlin Bullock MD Date: Family Medicine Arthralgia Your caregiver has diagnosed [...] applications, or slings as instructed. Only take [id number] or prescription medicines for pain, discomfort, or [...] Released: 01/26/2006 Document Revised: 04/19/2012 Document Reviewed: [facility] Patient Information 2015 [email or web address]. This information is not intended to replace advice given to you by your health care provider. Make sure you discuss any questions you have with your health care provider. No follow up information was provided. Extracted from: Title: Office Visit Note Author: Merlin Bullock MD Date: 12/22/14 Assessment/Plan Chronic left shoulder pain This issue was reviewed, appears stable, and current therapy continued except as mentioned. Appropriate lab was reviewed from the most recent appropriate entry and lab was ordered if needed in the cpoe /nursing orders, and follow up recommended generally in 90 days and no later then six months. Closed right radial fracture Wilton 5 number sixty refilled for pain. To Dr. Yang/Marzena for orthopedic evaluation next week. There is NO orthopedics available in [place] today. She is stable in her splint and having little to no pain. Wilton given to have on handover the weekend. Current every day smoker Smoking Cessation was discussed. The patient is welcome to f/u for therapy or medication for smoking cessation at any time that they are willing to quit. Hypertension This issue was reviewed, appears stable, and [...] pain, chest pressure, soa/mendoza. Renal dialysis status This issue was reviewed, appears stable, and current therapy continued except as mentioned. Appropriate lab was reviewed from the most recent appropriate entry and lab was ordered if needed in the cpoe/nursing orders, and follow up recommended generally in 90 days and no later then six months. Orders: HYDROcodone-acetaminophen, 1-2 tabs, Oral, TID, as needed for pain, # 60 tabs, 0 Refill(s)
--- OUTSIDE RECORDS SUMMARY | 2016-04-30 10:23 | XMS REPORT | Referral Summary ---
Author Organization Unknown Address Unknown Phone Unavailable Care Team Providers Care Burlap Roll Coverer Name Role Phone Alexei Bullock Primary Care Physician [phone] Encounter VC Date(s): 04/28/14 - 04/29/14 [facility] [address] [place] [address] [phone] Discharge Diagnosis: HTN (hypertension), malignant Discharge Diagnosis: Fluid overload Discharge Diagnosis: Anemia Discharge Diagnosis: Rectal bleeding Discharge Disposition: Home or Self Care Attending Physician: Eber Sr MD Admitting Physician: Eber Sr MD Vital Signs Most recent to 1 oldest [Reference Range]: Temperature Oral 36.7 degC [35.8-37.3 degC] (04/29/14 4:00 AM) Peripheral Pulse 63 bpm Rate [60-100 bpm] (04/29/14 4:00 AM) Heart Rate Monitored 56 bpm [60-100 bpm] *LOW* (04/28/14 8:05 AM) Respiratory Rate 18 br/min [14-20 br/min] (04/29/14 4:00 AM) Blood Pressure 145/67 mmHg [90-140/60-90 mmHg] *HI* (04/29/14 4:00 AM) Mean Arterial 120 mmHg Pressure, Cuff (04/28/14 8:05 AM) Most recent to 1 oldest [Reference Range]: SpO2 93 % (04/29/14 4:00 AM) Problem List Condition Effective Dates Status Health Status Informant Benign essential Resolved HTN(Confirmed) Benign essential Active hypertension(Confirm ed) Bowel Active dysfunction(Confirme d)1 Pain in Active rib(Confirmed) 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) Renal dialysis Active status(Confirmed) Fluid Active imbalance(Confirmed) 2 Heart Active failure(Confirmed) Hypertension(Confirm Active ed) Irritable bowel Active syndrome (IBS)(Confirmed) Kidney 2009 [...] 0 Refill(s) Start Date: 08/16/13 Status: Ordered cholecalciferol 2,000 Intl_Units, Oral, Daily, 0 Refill(s) Start Date: 04/28/14 Status: Ordered gabapentin 300 mg oral capsule See Instructions, 1 cap in the morning, and 2 caps in the evening., # 270 caps, 3 Refill(s), Pharmacy: [facility], 1 cap in the morning, and 2 caps in the evening. Special Instructions: 1 cap in the morning, and 2 caps in the evening. Start Date: 01/09/14 Status: Ordered Pravachol 20 mg oral tablet 1 tabs, Oral, Daily, # 90 tabs, 0 Refill(s) Start Date: 08/16/13 Status: Ordered Sensipar 30 mg oral tablet 1 tabs, Oral, Daily, 0 Refill(s) Start Date: 04/28/14 Status: Ordered sevelamer carbonate 800 mg oral tablet 2 tabs, Oral, TID, with meals, 0 Refill(s) Special Instructions: with meals Start Date: 04/28/14 Status: Ordered Results Hematology Most recent to 1 oldest [Reference Range]: WBC [4.8-10.8 K/uL] 8.0 K/uL (04/29/14 5:12 AM) RBC [4.00-5.20 M/uL] 2.97 M/uL *LOW* (04/29/14 5:12 AM) Hgb [12.0-16.0 9.6 gm/dL gm/dL] *LOW* (04/29/14 5:12 AM) Hct [37.0-47.0 %] 29.7 % *LOW* (04/29/14:12 AM) MCV [82.0-99.0 fL] 100.0 fL *HI* (04/29/14 5:12 AM) MCH [27.0-32.0 pg] 32.3 pg *HI* (04/29/14:12 AM) MCHC [32.0-36.0 32.3 gm/dL gm/dL] (04/29/14 5:12 AM) RDW [11.5-14.5 %] 13.3 % (04/29/14:12 AM) Platelet [150-400 141 K/uL K/uL] *LOW* (04/29/14 5:12 AM) MPV [9.4-12.4 fL] 11.2 fL (04/29/14 5:12 AM) Immature 0.2 % Granulocytes (04/29/14:12 AM) [0.0-1.0 %] Neutrophils [51-75 64 % %] (04/29/14 5:12 AM) Lymphocytes [20-46 26 % %] (04/29/14 5:12 AM) Monocytes [4-11 %] 9 % (04/29/14 5:12 AM) Eosinophils [0-4 %] 0 % (04/29/14 5:12 AM) Basophils [0-2 %] 0 % (04/29/14 5:12 AM) Neutro Absolute 5.13 THOUS [1.90-7.00 THOUS] (04/29/14 5:12 AM) Lymph Absolute 2.12 THOUS [0.80-3.30 THOUS] (04/29/14 5:12 AM) [place] Absolute 0.69 THOUS [0.30-1.00 THOUS] (04/29/14 5:12 AM) Eos Absolute 0.03 THOUS [0.00-0.50 THOUS] (04/29/14 5:12 AM) Baso Absolute 0.03 THOUS [0.00-0.20 THOUS] (04/29/14 5:12 AM) Nucleated RBC 0.0 /100 WBC Automated [0 /100 (04/29/14 5:12 AM) WBC] Chemistry Most recent to 1 oldest [Reference Range]: Sodium Lvl [136-144 134 mEq/L mEq/L] *LOW* (04/29/14 5:12 AM) Potassium Lvl 4.0 mEq/L [3.6-5.1 mEq/L] (04/29/14 5:12 AM) Chloride [99-109 94 mEq/L mEq/L] *LOW* (04/29/14 5:12 AM) CO2 [22-32 mEq/L] 27 mEq/L (04/29/14 5:12 AM) AGAP [3-20] 13 (04/29/14 5:12 AM) BUN [4-20 mg/dL] 40 mg/dL *HI* (04/29/14 5:12 AM) Glucose Lvl [70-100 101 mg/dL mg/dL] *HI* (04/29/14 5:12 AM) Creatinine Lvl 4.87 mg/dL [0.44-1.03 mg/dL] *HI* (04/29/14 5:12 AM) eGFR [>60] 9 3 *ABN* (04/29/14 5:12 AM) Calcium Lvl 7.9 mg/dL [8.6-10.0 mg/dL] *LOW* (04/29/14 5:12 AM) Albumin Lvl [3.5-4.8 3.2 gm/dL gm/dL] *LOW* (04/29/14 5:12 AM) Total Protein 7.0 gm/dL [6.1-7.9 gm/dL] (04/28/14 6:20 AM) Globulin [1.9-4.3 3.3 gm/dL gm/dL] (04/28/14 6:20 AM) ALT [14-54 unit/L] 14 unit/L (04/28/14 6:20 AM) AST [15-41 unit/L] 19 unit/L (04/28/14 6:20 AM) Alk Phos [26-104 118 unit/L unit/L] *HI* (04/28/14 6:20 AM) Bili Total [0.2-1.2 0.5 mg/dL 2 mg/dL] (04/28/14 6:20 AM) Phosphorus [2.4-4.7 4.1 mg/dL 1 mg/dL] (04/29/14 5:12 AM) Troponin [<0.06 <0.05 ng/mL ng/mL] (04/28/14 6:20 AM) Sodium Venous 131 mEq/L [136-144 mEq/L] *LOW* (04/28/14 6:07 AM) Potassium Venous 5.0 mEq/L 4 [3.6-5.1 mEq/L] (04/28/14 6:07 AM) Calcium Ionized 1.01 mmol/L Venous [1.19-1.41 *LOW* mmol/L] (04/28/14 6:07 AM) Total CO2 Venous 22 mEq/L [25-29 mEq/L] *LOW* (04/28/14 6:07 AM) HGB Venous NPT 11.2 gm/dL [12.0-16.0 gm/dL] *LOW* (04/28/14 6:07 AM) HCT Venous 33.0 % [37.0-47.0 %] *LOW* (04/28/14 6:07 AM) Glucose Venous 107 mg/dL [70-100 mg/dL] *HI* (04/28/14 6:07 AM) BUN Venous [4-20] 69 *HI* (04/28/14 6:07 AM) Creatinine Venous 7.8 mg/dL [0.4-1.0 mg/dL] *HI* (04/28/14 6:07 AM) Venous CL [99-109 98 mEq/L mEq/L] *LOW* (04/28/14 6:07 AM) Anion Gap, Franky 11 [3-20] (04/28/14 6:07 AM) Occult Blood, Stool Positive NPT [Negative] *ABN* (04/28/14 6:38 AM) 1Result Comment: High dosages of liposomal Amphotericin B (AmBisome) therapy or other drug preparations that use a liposomal envelope to facilitate drug delivery may cause falsely elevated results for phosphorus. 2Result Comment: Naproxen, specifically the metabolite O-desmethylnaproxen, may cause spurious elevation in Total Bilirubin levels. 3Result Comment: Multiply eGFR results by 1.21 for race. 4Result Comment: This test was performed on a whole blood specimen. The presence or absence of hemolysis cannot be assessed. Hemolysis can falsely elevate potassium levels. Normals are for venous specimens only. Blood Bank Results Most recent to 1 oldest [Reference Range]: ABO/Rh O POS (04/28/14 6:20 AM) Antibody Screen Tube NEG (04/28/14 6:20 AM) Immunizations No data available for this section Procedures Procedure Date Related Diagnosis Body Site Bilateral tubal ligation Blood transfusion Colonoscopy Dialysis patient Heart cath Kidney surgery Left arm dialysis fistula Stent Social History Social History Type Response Smoking Status Former smoker; Type: Cigarettes Assessment and Plan No data available for this section
--- OUTSIDE RECORDS SUMMARY | 2016-04-30 10:24 | XMS REPORT ---
Author Author Jai Suarez Organization [employer] Address Unknown Phone Unavailable Care Team Providers Care Membership Correspondent Name Role Phone Jai Suarez CP Unavailable Allergies No Known Allergies Problems Problem Type Condition Code Onset Dates Condition Status Problem End stage renal disease 585.6 Active Problem Dyslipidemia E78.5 Active Problem Carotid bruit R09.89 Active Problem Pre-operative cardiovascular examination Z01.810 Active Problem Atrial fibrillation I48.91 Active Problem Persistent atrial fibrillation I48.1 Active Problem PVD (peripheral vascular disease) I73.9 Active Problem Hypertension I10 Active Problem Mitral regurgitation I34.0 Active Problem CAD (coronary artery disease) I25.10 Active Problem Murmur 785.2 Active Problem Pre-operative cardiovascular examination V72.81 Active Assessment Persistent atrial fibrillation I48.1 Active Problem Peripheral Vascular Disease 443.9 Active Problem Coronary Artery Disease 414.01 Active Problem Carotid Bruit 785.9 Active Problem Dyslipidemia 272.4 Active Problem Hypertension 401.9 Active Problem Aortic Valve Stenosis 424.1 Active Medications Medication Code System Code Instructions Start Date End Date Status Dosage Coumadin [facility] [address]-85 5 MG Orally as directed Oct 18, 2015 1/ 2 tablet thu, 1 tablet all other days Results No Known Results Summary Purpose [employer] Submission
--- OUTSIDE RECORDS SUMMARY | 2016-04-30 10:24 | XMS REPORT | Continuity of Care Document ---
Author Author [facility] Organization [facility] Address Unknown Phone Unavailable Support Name Relationship Address Phone DANIEL OROURKE MD Caregiver [address] [place] [address] Unavailable JENNYFER HARMON MD Caregiver [address] [place] [address] [place] [address] Unavailable ALTUM, MARLEN Next Of Kin [address] [place], [place] [id number] Insurance Providers Guarantor Yvonne Temple Address [address] [place] [address] Email DENIED/NO TO PT PORTAL Payer [place] [facility] Policy Number [id number] Subscriber's Name Yvonne Temple Relationship 18 Self Effective Date 07 Payer Medicare Policy Number [id number] Subscriber's Name TempleYvonne Relationship 18 Self Effective [...] Date Discharge/Depart Date Attending Provider Registered Clinic [facility] 02/06/16 10:05am DANIEL OROURKE MD Discharged Recurring [facility] 01/23/16 10:45am 02/09/16 11: 17pm DANIEL OROURKE MD Registered Recurring [facility] 01/09/16 10:13am DANIEL OROURKE MD
--- OUTSIDE RECORDS SUMMARY | 2016-04-30 10:24 | XMS REPORT | Continuity of Care Document ---
Author Author [facility] Organization [facility] Address Unknown Phone Unavailable Allergies Active Description Code Type Severity Reaction Onset Reported/Identified Relationship to Patient Clinical Status Yes Tuberculin,Old Skin Test Drug Allergy Severe Adverse Reaction 12/17/2009 Yes No Known Food Allergies Food Allergy 01/09/2012 Medications Problems Procedures Code Description Performed By Performed On 00.40 PROCEDURE ON SINGLE VESSEL Tiff Magallon MD 05/20/2012 00.45 INSERTION OF ONE VASCULAR STENT Tiff Magallon MD 05/20/2012 00.66 PERCUTANEOUS TRANSLUMINAL CORONARY ANGIOPLASTY [PT Tiff Magallon MD 05/20/2012 36.06 CORONARY ARTERY STENT INSERTION [id number] Tiff Magallon MD 05/20/2012 37.23 RT/LEFT HEART CARD CATH Daniela FRANCO, [facility] 05/20/2012 88.42 CONTRAST AORTOGRAM Daniela FRANCO, [facility] 05/20/2012 88.47 CONTR ABD ARTERIOGRM NEC Daniela FRANCO, [facility] 05/20/2012 88.54 RT LT HEART ANGIOCARD Daniela FARNCO, [facility] 05/20/2012 88.56 CORONAR ARTERIOGR-2 CATH Daniela FRANCO, [facility] 05/20/2012 Results Test Result Range CBC - 05/20/12 11:15 MEAN CELL HGB 32.8 pg 27.0-33.0 MEAN CELL HGB CONCENTRATION 32.9 g/dL 32.0-37.0 MEAN CELL VOLUME 99.7 fl 80.0-100.0 RED BLOOD CELL 3.93 m/cumm 4.00-6.00 RED CELL DISTRIBUTION WIDTH 13.9 % 11.0- 15.6 WHITE BLOOD CELL 7.8 k/cumm 5.0-10.0 HEMOGLOBIN 12.9 gm/dL 12.0-16.0 HEMATOCRIT 39.2 % 37.0-47.0 PLATELET COUNT 214 k/cumm 150-400 PROTHROMBIN TIME WITH INR - 05/20/12 11:15 INTERNATIONAL NORMAL RATIO 1.0 0.9-1.1 PROTHROMBIN TIME 11.0 sec 9.3-12.2 PARTIAL THROMBOPLASTIN TIME - 05/20/12 11:15 PARTIAL THROMBOPLASTIN TIME 33 sec 24-36 METABOLIC PANEL, COMPREHN - 05/20/12 11:15 POTASSIUM 4.2 mmol/L 3.5-5.3 EST GFR (MDRD) < 10 mL/min > 59 ANION GAP 10 mmol/L 5-15 EST CrCl (CG) < 10 mL/min > 59 GLUCOSE 100 mg/dL 70-99 CALCIUM 9.5 mg/dL 8.5-10.1 BLOOD UREA NITROGEN 34 mg/dL 7-20 CREATININE 5.1 mg/dL 0.6-1.0 SODIUM 137 mmol/L 135-148 CHLORIDE 101 mmol/L 98-110 AST/SGOT 17 Units/L 10-37 ALT/SGPT 22 Units/L < 66 CARBON DIOXIDE 26 mmol/L 21-32 TOTAL PROTEIN 7.8 gm/dL 6.4-8.2 ALBUMIN 3.9 gm/dL 3.4-5.0 BILI TOTAL 0.4 mg/dL 0.0-1.0 ALKALINE PHOSPHATASE TOTAL 203 Units/L 50 -136 LIPID PANEL - 05/20/12 11:15 CHOLESTEROL/HDL RATIO 2.1 < 5.0 LDL CHOLESTEROL 72 mg/dL < 100 VLDL CHOLESTEROL 22 mg/dL < 30 TRIGLYCERIDES 110 mg/dL < 150 CHOLESTEROL 179 mg/dL < 200 HDL CHOLESTEROL 85 mg/dL > 39 PARTIAL THROMBOPLASTIN TIME - 05/20/12 17:15 PARTIAL THROMBOPLASTIN TIME 41 sec 24-36 Encounters ACCT No. Visit Date/Time Discharge Status Pt. Type Provider Facility Loc./Unit Complaint [id number] 01/09/2012 09:20:00 2011 15:28:00 DIS Inpatient Tommy FRANCO, [facility] [place] [facility]
--- OUTSIDE RECORDS SUMMARY | 2016-04-30 10:24 | XMS REPORT | Continuity of Care Document ---
Author Author [facility] Address Unknown Phone Unavailable Care Team Providers Care Instructional Materials Director Name Role Phone Merlin Bullock PP Unavailable Payers Payer name Insurance type Covered democrat ID Authorization(s) Unknown Problems Condition Effective Dates (start - stop) Clinical Status Renal dialysis status - *Chronic Special screening for malignant neoplasms, colon - *Routine RENAL & URETERAL DIS NOS - Fever - *Acute Bronchitis, acute - *Acute Tobacco use - *Chronic Hypertension, benign - *Controlled Renal dialysis status - *Controlled Bronchitis, Acute - *Acute Pneumonia - *Acute COPD - *Chronic Tobacco Abuse - *Chronic RENAL DIALYSIS STATUS - *Chronic COPD - Chronic Cervicalgia - *Acute Lumbago - *Acute Pain in joint involving shoulder region - *Acute Pain in limb - *Acute Hypertension, Benign - *Chronic Other and unspecified hyperlipidemia - *Chronic RENAL DIALYSIS STATUS - *Chronic CHRONIC PAIN NEC - *Chronic Hypertension, benign - *Chronic Renal dialysis status [...] - *Acute Renal dialysis status - *Chronic Lumbago - *Chronic Hypertension, Benign - *Chronic Chronic kidney disease, unspecified - *Chronic RENAL DIALYSIS STATUS - *Chronic Pneumonia - *Acute RENAL DIALYSIS STATUS - [...] Adverse Reactions, Alerts Substance Reaction Severity Status TUBERCULIN,OLD SKIN TEST Unknown Medications Medication Instructions Dosage Effective Dates (start - stop) Status Claritin 10 mg tablet Take 1 tablet [...] route every day 20 MG - Active [place] 5 mg-325 mg tablet take 1 - 2 Tablet by oral route every 8 hours as needed for pain 0 - Active Plavix 75 mg tablet take 1 tablet (75MG) by oral route every day 75 MG May - Active gabapentin 300 mg capsule Take 1 tab in the morning, and 2 tabs in the evening. - Active Neurontin 300 mg capsule Take 1 capsule in the morning and 2 capsules by mouth at bedtime. - Active Immunizations Vaccine Date Status Comments Unknown Results Test Name Date and Time Measure Units Reference Range Abnormal Flag Comments Unknown Vital Signs Date / Time: Height Weight Pulse Rate Blood Pressure Temperature /13:05:00 63.00 in 131.00 lbs 120/70 mm[Hg] 98.2 F Procedures Procedure Date Unknown Encounters Encounter Location Date Patient Visit [facility] Patient Visit Conversion Patient Visit [facility] Patient Visit [facility] Patient Visit [facility] Patient Visit [facility] Patient Visit [facility] Patient Visit [facility] Patient Visit [facility] Patient Visit [facility] Patient Visit [facility] Patient Visit [facility] Patient Visit [facility] Patient Visit [facility] Patient Visit [facility] Patient Visit [facility] Patient Visit [facility] Advance Directives Directive Effective Date Unknown
--- OUTSIDE RECORDS SUMMARY | 2016-04-30 10:24 | XMS REPORT | Referral Summary ---
Author Author [facility] Organization [facility] Address Unknown Phone Unavailable Care Team Providers Care Cardiology Clinical Consultant Name Role Phone Alexei Bullock Primary Care Physician [phone] Encounter VC Date(s): 06/12/15 - 06/12/15 [facility] [address] [place] [address] [place] [address]- Discharge Diagnosis: Breast cancer Discharge Disposition: 01-Home or Self Care Attending Physician: Dion Garcia MD Admitting Physician: Dion Garcia MD Referring Physician: Merlin Bullock MD Vital Signs Most recent to 1 oldest [Reference Range]: Temperature Tympanic 36.5 degC [36.6-38.1 degC] *LOW* (06/12/15 3:50 PM) Problem List Condition Effective Dates Status [...] 0 Refill(s) Start Date: 03/26/15 Status: Ordered [place] 5 mg-325 mg oral tablet See Instructions, [...] Patient Education Author: Dion Garcia MD Date: 06/11 Obstetrics and Gynecology Breast Cancer Breast cancer [...] Released: 05/06/2006 Document Revised: 06/12/2014 Document Reviewed: [employer]Care Patient Information 2014 [employer]. No follow up information was provided.
--- OUTSIDE RECORDS SUMMARY | 2016-04-30 10:25 | XMS REPORT | Referral Summary ---
Author Author [facility] Organization [facility] Address Unknown Phone Unavailable Care Team Providers Care Roofing Subcontractor Name Role Phone BerniechelleAlexei Primary Care Physician [phone] Encounter VC Date(s): 07/19/15 - 07/19/15 [facility] [address] [place], [place] [address] Discharge Diagnosis: S/p mastectomy Discharge Disposition: 01-Home [...] 0 Refill(s) Start Date: 07/06/15 Status: Ordered [place] 5 mg-325 mg oral tablet See Instructions, [...] tylectomy, quadrantectomy, segmentectomy);2 Mastectomy Modified Radical with [place] 07/10/15 Node Biopsy (Left)3 Bilateral tubal ligation Blood transfusion Colonoscopy Dialysis patient Heart cath Kidney surgery Left arm dialysis fistula Stent 1Dx: D36.0 2Dx: D05.12 3auto-populated from documented surgical case Social History Social History Type Response Smoking Status Former smoker; Type: Cigarettes Assessment and Plan Extracted from: Title: BREAST CLINIC NOTE Author: Shasha Valencia MD Date: 07/19/15 Assessment/Plan 1.S/p mastectomy 1. The patient is a 74-year-old woman who underwent a mastectomy for left breast cancer. She is healing fairly well. She is to call the office when her drain output is less than 30 mL in a 24-hour period for 2 days in a row. She continues to have home healthassisting her with her care at home. 2. The patient's pathology report was discussed in detail. It did show that she had a 2.4 cm cancer with good margins and negative lymph nodes. I explained that she was staged 2. Her cancer is unfortunately triple negative and typically she wouldneed chemotherapy, however,her medical problems may precludethe possibility of chemotherapy. She needs to see a medical oncologist to discuss this further. She would like to see Dr. Keane in [place]. We will set this up for her. Ordered: Postoperative Est [id number]
--- OUTSIDE RECORDS SUMMARY | 2016-04-30 10:25 | XMS REPORT | Continuity of Care Document ---
Author Author [facility] Organization [facility] Address Unknown Phone Unavailable Care Team Providers Care Account Support Associate Name Role Phone Primary Care Physician Unavailable Source Comments Some departments are not documenting in the electronic medical record. If you do not see the information that you expected, contact Release of Information in the Health Information Management department at [phone] for further assistance in locating additional records.[facility] Active Allergies and Adverse Reactions Not on [...]
--- OUTSIDE RECORDS SUMMARY | 2016-04-30 10:25 | XMS REPORT | Referral Summary ---
Author Author [facility] Organization [facility] Address Unknown Phone Unavailable Care Team Providers Care Pcat Instructor Name Role Phone Alexei Bullock Primary Care Physician [phone] Encounter VC Date(s): 03/26/15 - 03/28/[address] [facility] [address] [place] [address] Discharge Disposition: 01-Home or Self Care Attending Physician: Shannon Carrillo MD Admitting Physician: Alphonse De Guzman MD Vital Signs Most recent to 1 oldest [Reference Range]: Temperature Oral 36.8 degC [35.8-37.3 degC] (03/28/15 7:52 AM) Peripheral Pulse 79 bpm Rate [60-100 bpm] (03/28/15 7:52 AM) Respiratory Rate 18 br/min [14-20 br/min] (03/28/15 7:52 AM) Blood Pressure 180/79 mmHg [90-140/60-90 mmHg] *HI* (03/28/15 7:52 AM) Mean Arterial 104 mmHg Pressure, Cuff (03/26/15 11:51 PM) SpO2 94 % (03/28/15 7:52 AM) Problem List Condition Effective Dates Status [...] 0 Refill(s) Start Date: 03/26/15 Status: Ordered Camden 5 mg-325 mg oral tablet 1-2 tabs, [...] Status: Ordered predniSONE 20 mg oral tablet 40 mg 2 tabs, Oral, Daily, X 4 days, # 8 tabs, 0 Refill(s) Start Date: 03/28/15 Stop Date: 04/01/15 Status: Ordered Sensipar 30 mg oral tablet 1 tabs, Oral, Daily, 0 Refill(s) Start Date: 04/28/14 Status: Ordered sevelamer carbonate 800 mg oral tablet 2 tabs, Oral, TID, with meals, 0 Refill(s) Start Date: 04/28/14 Status: Ordered Results Blood Gases Most recent to 1 oldest [Reference Range]: pH [7.35-7.45] 7.40 (03/26/15 9:45 PM) pCO2 Art [35-45 46 mmHg mmHg] *HI* (03/26/15 9:45 PM) Bicarbonate [22-26 28 mEq/L mEq/L] *HI* (03/26/15 9:45 PM) Base Excess Art 2 [0-2] (03/26/15 9:45 PM) O2 Sat Art 96.1 % [90.0-97.0 %] (03/26/15 9:45 PM) pO2 Art [80-100 83 mmHg mmHg] (03/26/15 9:45 PM) LPM Art 2.0 L/min (03/26/15 9:45 PM) O2 Panel Nasal Cannula (03/26/15 9:45 PM) Spec Site Radial-R (03/26/15 9:45 PM) Hematology Most recent to 1 oldest [Reference Range]: WBC [4.8-10.8 5.8 10*3/uL 10*3/uL] (03/27/15 6:14 AM) RBC [4.00-5.20] 3.34 *LOW* (03/27/15 6:14 AM) Hgb [12.0-16.0 10.9 gm/dL gm/dL] *LOW* (03/27/15 6:14 AM) Hct [37.0-47.0 %] 33.7 % *LOW* (03/27/15 6:14 AM) MCV [82.0-99.0 fL] 100.9 fL *HI* (03/27/15 6:14 AM) MCH [27.0-32.0 pg] 32.6 pg *HI* (03/27/15 6:14 AM) MCHC [32.0-36.0 32.3 gm/dL gm/dL] (03/27/15 6:14 AM) RDW [11.5-14.5 %] 14.0 % (03/27/15 6:14 AM) Platelet [150-400 206 10*3/uL 10*3/uL] (03/27/15 6:14 AM) MPV [9.4-12.4 fL] 10.4 fL (03/27/15 6:14 AM) Immature 0.0 % Granulocytes (03/27/15 6:14 AM) [0.0-1.0 %] Neutrophils [51-75 88 % %] *HI* (03/27/15 6:14 AM) Lymphocytes [20-46 12 % %] *LOW* (03/27/15 6:14 AM) Monocytes [4-11 %] 0 % *LOW* (03/27/15 6:14 AM) Eosinophils [0-4 %] 0 % (03/27/15 6:14 AM) Basophils [0-2 %] 0 % (03/27/15 6:14 AM) Neutro Absolute 5.10 10*3 [1.90-7.00 10*3] (03/27/15 6:14 AM) Lymph Absolute 0.70 10*3 [0.80-3.30 10*3] *LOW* (03/27/15 6:14 AM) Gosper Absolute 0.01 10*3 [0.30-1.00 10*3] *LOW* (03/27/15 6:14 AM) Eos Absolute 0.00 10*3 [0.00-0.50 10*3] (03/27/15 6:14 AM) Baso Absolute 0.01 10*3 [0.00-0.20 10*3] (03/27/15 6:14 AM) Nucleated RBC 0.0 /100 WBC Automated [0 /100 (03/27/15 6:14 AM) WBC] Chemistry Most recent to 1 oldest [Reference Range]: Sodium Lvl [136-144 133 mEq/L mEq/L] *LOW* (03/27/15 6:14 AM) Potassium Lvl 4.6 mEq/L [3.6-5.1 mEq/L] (03/27/15 6:14 AM) Chloride [99-109 93 mEq/L mEq/L] *LOW* (03/27/15 6:14 AM) CO2 [22-32 mEq/L] 26 mEq/L (03/27/15 6:14 AM) AGAP [3-20] 14 (03/27/15 6:14 AM) BUN [4-20 mg/dL] 29 mg/dL *HI* (03/27/15 6:14 AM) Glucose Lvl [70-100 186 mg/dL mg/dL] *HI* (03/27/15 6:14 AM) Creatinine Lvl 5.25 mg/dL [0.44-1.03 mg/dL] *HI* (03/27/15 6:14 AM) eGFR [>60] 8 1 *ABN* (03/27/15 6:14 AM) Calcium Lvl 9.2 mg/dL [8.6-10.0 mg/dL] (03/27/15 6:14 AM) Albumin Lvl [3.5-4.8 3.5 gm/dL gm/dL] (03/27/15 6:14 AM) Total Protein 7.0 gm/dL [6.1-7.9 gm/dL] (03/27/15 6:14 AM) Globulin [1.9-4.3 3.5 gm/dL gm/dL] (03/27/15 6:14 AM) ALT [14-54 U/L] 15 U/L (03/27/15 6:14 AM) AST [15-41 U/L] 21 U/L (03/27/15 6:14 AM) Alk Phos [26-104 127 U/L U/L] *HI* (03/27/15 6:14 AM) Bili Total [0.2-1.2 0.4 mg/dL 2 mg/dL] (03/27/15 6:14 AM) Magnesium Lvl 1.9 mg/dL [1.8-2.5 mg/dL] (03/27/15 6:14 AM) 1Result Comment: Multiply eGFR results by 1.21 for race. 2Result Comment: Naproxen, specifically the metabolite O-desmethylnaproxen, may cause spurious elevation in Total Bilirubin levels. Microbiology Reports TEST: Sputum Culture and Smear STATUS: Order in Progress BODY SITE: SOURCE: Sputum COLLECTED DATE/TIME: 03/27/15 11:56 AM Sputum Culture and Smear Gram negative bacillus small amount No further workup will be performed on this isolate. ORGANISM:Gram Negative Rods TEST: Respiratory Virus Panel - PCR STATUS: Auth (Verified) BODY SITE: SOURCE: Nasopharyngeal Swab COLLECTED DATE/TIME: 03/27/15 3:34 AM Respiratory Virus Panel - PCR Rhinovirus Positive by PCR . Specimen tested for the following FDA approved viral targets: Influenza A, Influenza A subtype H1, Influenza A subtype H3, Influenza A 2009 H1N1, Influenza B, Respiratory Syncytial Virus subtype A, Respiratory Syncytial Virus subtype B, Adenovirus B/E, Adenovirus C, Rhinovirus, Parainfluenza virus 1, Parainfluenza virus 2, Parainfluenza virus 3, and Human Metapneumovirus. . The following viral targets were also tested. Although not FDA approved, these targets have been validated by our laboratory for clinical diagnosis: Parainfluenza virus 4, Coronavirus 229E, Coronavirus NL63, Coronavirus HKU1, and Coronavirus OC43. ORGANISM:Rhinovirus Immunizations No data available for this section Procedures Procedure Date Related Diagnosis Body Site Arterial puncture, withdrawal of blood for 03/26/15 diagnosis Bilateral tubal ligation Blood transfusion Colonoscopy Dialysis patient Heart cath Kidney surgery Left arm dialysis fistula Stent Social History Social History Type Response Smoking Status Former smoker; Type: Cigarettes Assessment and Plan No data available for this section
--- OUTSIDE RECORDS SUMMARY | 2016-04-30 10:27 | XMS REPORT | Continuity of Care Document ---
Author Author [facility] Organization [facility] Address Unknown Phone Unavailable Allergies Active Description [...] MD 05/20/2012 36.06 CORONARY ARTERY STENT INSERTION [id number] Tiff Magallon MD 05/20/2012 37.23 RT/LEFT HEART CARD CATH Daniela FRANCO, [facility] 05/20/2012 88.42 CONTRAST AORTOGRAM Daniela FRANCO, [facility] 05/20/2012 88.47 CONTR ABD ARTERIOGRM NEC Daniela FRANCO, [facility] 05/20/2012 88.54 RT LT HEART ANGIOCARD Daniela RFANCO, [facility] 05/20/2012 88.56 CORONAR ARTERIOGR-2 CATH Daniela FRANCO, [facility] 05/20/2012 Results Test Result Range CBC - [...] Status Pt. Type Provider Facility Loc./Unit Complaint [id number] 01/09/2012 09:20:00 2011 15:28:00 DIS Inpatient Tommy FRANCO, [facility] [place] F6SE
--- NOTE | 2016-04-30 10:29 | NUR ---
PHYSICIAN VISIT DR. GRAHAM IN TO SEE PATIENT.
--- NOTE | 2016-04-30 10:37 | ERPDOC ---
Departure Disposition Decision Date: Apr 30, 2016 Disposition Decision Time: 11:30 Disposition: 01 DISCHARGED HOME, SELF-CARE Impression Impression Impression: Primary Impression: Cough Additional Impression: Pulmonary vascular congestion Severity: Mild Condition: Improved Seen By: Physician only Referrals: JENNYFER HARMON MD (Family) 1 Day Patient Instructions: Acute Cough (ED) Problems/Meds/Labs Reviewed?: Yes Medications reviewed and manag: Yes Follow up care ordered?: Yes Mental Status: Alert, Oriented Scripts Benzonatate (Tessalon Perle) 100 Mg Capsule 100 MG PO Q8H for COUGH, #9 CAP 0 Refills Prov: HAN GRAHAM DO 04/30/16 HPI - Cough/URI General Chief Complaint: Cough,Fever,Flu,URI Stated Complaint: PNEUMONIA Time Seen by Provider: 10:20 Source: patient (Patient presents to the ER for a 2-3 day complaint of intermittant cough and congestion. Apparently the patient received dialysis this morning and told the patient that she needed to come to the ER for evaluation. Patient states her symptoms have improved, and she feels fine. Patient wears home oxygen and has not had to increase her flow. Patient also complained of sore throat earlier, but that has subsided. ) Exam Limitations: no limitations HPI - Cough/URI Occurred At: home Onset/Timing: Changing over time Duration: 1 week Pain/Severity Scale: Now & Worst: 0/10 Prior Episodes/Possible Cause: occasional episodes Modifying Factors: IMPROVES WITH: oxygen, rest, WORSE WITH: coughing Associated Symptoms: cough, muscle aches, nasal congestion, sore throat, DENIES : chest pain/soreness, dizziness, earache, facial pain, fever/chills, headache, lightheadedness, nasal drainage, shortness of breath, sinus infection, wheezing Hx of Similar Symptoms: Yes Allergies: Coded Allergies: tuberculin, purified protein deriva (Verified Allergy, Unknown, 04/30/16) Past History Past Medical History Metabolic: hypertension Respiratory: COPD Female: other, renal failure, renal insufficiency Surgical History General: other Family History Family PMH: FOUND: MS, diabetes, hypertension Vaccines Hx Influenza Vaccination: Yes (had flu shot this fall) Hx Pneumococcal Vaccination: Yes (2011) Social History Smoking Status: Former smoker Does patient use chewing tobac: No Second Hand Exposure: No Substance Use Type: does not use Alcohol Intake: none Marital Status: In a relationship Sexuality: male partner Housing: house Household Members: significant other Service: No Current Occupational Status: retired Occupational Hazard: No Advance Directives: Yes Full Code Record Review Pertinent history updated: Yes Review of Systems Constitutional Constitutional: DENIES: chills, fever Eyes Lids/Accessories: DENIES: erythema, swelling ENMT Ears: DENIES: erythema, pain Balance: DENIES: ataxia, vertigo Sinuses: congestion, DENIES: rhinorrhea Mouth/Throat: sore throat Cardiovascular Cardiac: DENIES: chest pain, dyspnea on exertion, orthopnea Rhythm/Rate: tachycardia (Intermittantly, which the patient states is not new, and is 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 by 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) Pulmonary Respiratory: cough, sputum, DENIES: dyspnea GI Upper Abdomen: DENIES: nausea, pain, vomiting Lower Abdomen: DENIES: constipation, diarrhea, pain General: DENIES: dysuria Musculoskeletal General: DENIES: cramps, pain, weakness Integumentary Skin: DENIES: color change, itching, rash Neurological General: DENIES: ataxia, change in strength, headache, numbness, poor coordination, seizures, syncope, vertigo, weakness Psychiatric Psychiatric: DENIES: anxiety, depression, nervousness Hematologic/Lymphatic Hematologic/Lymphatic: DENIES: anemia Allergic/Immunological Allergic/Immunoligical: DENIES: sneezing All other Systems All Other Systems: Reviewed and Negative Physical Exam General General Nourishment: well nourished, well developed, appears stated age, adult General Body Habitus: well groomed Vitals and Pain First Documented Vital Signs Date Time Temp Pulse Resp B/P Pulse Ox O2 Delivery O2 Flow Rate FiO2 04/30/16 10:20 97.5 88 20 159/86 94 Room Air 04/30/16 10:51 2.00 Weight: Kilograms: 55.200 Height (feet): 5 Height (inches): 3.00 Triage Pain Scale: RN VS reviewed by Provider: Yes Eyes (brief) Eyes Brief: found: EOMI, PERRL ENMT (brief) ENMT Brief: FOUND: TM clear, TM good light reflex, mucosa moist, NOT FOUND: pharnyx erythema Neck (brief) Neck: FOUND: trachea midline, NOT FOUND: adenopathy, tenderness, tracheal deviation Respiratory Inspection: NOT FOUND: asymmetry, audible stridor, audible wheezing, increased effort Palpation: NOT FOUND: tenderness Auscultation: FOUND: rhonchi (mild, clears with cough), NOT FOUND: wheezes Cardiovascular (brief) Cardiac: FOUND: regular rate, regular rhythm, NOT FOUND: pedal edema Capillary Refill: <2 sec Pulses: all distal extremities, equal, strong Abdomen (brief) Abdominal Brief: FOUND: bowel normo active x4, soft, NOT FOUND: distended, tender Lymphatic (brief) Lymphatic Brief: NOT FOUND: adenopathy Musculoskeletal (brief) Musculoskeletal Brief: NOT FOUND: spasm, tenderness Integumentary (brief) Integumentary Brief: FOUND: pink, warm Neurologic (brief) Neurological Brief: FOUND: CN w/o gross def to obs, gait w/o gross def to obs, motor-no gross deficits, sensory-no gross deficits, NOT FOUND: ataxia Psychiatric (brief) Psychiatric Brief: FOUND: alert, attentive, normal affect, oriented Differential Diagnoses Differential Diagnoses Considering: Acute Bronchitis, Asthma Exacerbation, COPD Exacerbation, Influenza, Pharyngitis, Pneumonia, Sinusitis, Strep, URI, Viral Syndrome, Other Progress Results/Orders Orders Procedure Category Date Status Time Influenza A/B Screen LAB 04/30/16 Complete 10:32 Strep A Antigen Screen LAB 04/30/16 Complete 10:32 Chest, Pa & Lateral RAD 04/30/16 Resulted Group A Strep Culture JAIDA 04/30/16 In Process 10:56 Lab Results Laboratory Tests Test 04/30/16 10:38 Influenza Type A Antigen Negative Influenza Type B Antigen Negative Group A Streptococcus Screen Negative Progress Progress Patient refused labs Will agree to Influenza and Strep Screening along with CXR Patient is resting comfortably, wanting to go home. I discussed admission, but the patient refused. Patient to continue Dialysis, next treatment on Thursday Patient states she had a full dialysis treatment today, prior to coming to the ER Patient to return to the ER with worsening symptoms Xray Xray : Reason for Exam: Cough Interpretation: Abnormal, Reviewed Written Report (Mild Vascular congestion) HAN GRAHAM DO Apr 30, 2016 10:37
[2016-04-30] MEDS ORDERED: GABA-305 PO (10:40)
--- NOTE | 2016-04-30 10:41 | NUR ---
X-RAY TRANSPORTED TO X-RAY VIA STRETCHER PER X-RAY TECH.
[2016-04-30] MEDS ORDERED: WARF5TAB6 PO (10:42)
[2016-04-30] MEDS ORDERED: LETR2.5T4 PO (10:42)
--- NOTE | 2016-04-30 10:48 | NUR ---
RETURNED RETURNED FROM X-RAY.
--- NOTE | 2016-04-30 11:01 | DI ---
INDICATION: ITS.REASON: cough congestion and shortness of breath for five days PROCEDURE: CHEST 2-VIEWS UPRIGHT (PA \T\ LAT) Encounter: Initial COMPARISON: March 26, 2015 and May 27, 2012 FINDINGS: Increased interstitial markings bilaterally, slightly worsened from the prior study. Possible trace fluid along the right major fissure. No pneumothorax or lobar consolidation. Cardiac silhouette remains moderately enlarged. Mediastinal contours are stable. Pulmonary vascularity is prominent with suggestion of some Jayy B lines in the bases. Vascular stent in the left brachial region. Impression: Evidence of mild pulmonary edema or volume overload. No focal pneumonia. .
[2016-04-30 11:09] LABS: INFLUENZA A AG SCREEN NEGATIVE (NEGATIVE); INFLUENZA B AG SCREEN NEGATIVE (NEGATIVE)
--- NOTE | 2016-04-30 11:52 | NUR ---
STATUS PATIENT IS OUT OF BED AND GOT DRESSED BY SELF WITHOUT DIFFICULTIES. UP TO BR TO VOID. EDUCATED PATIENT ON WAIT TIMES.
[2016-04-30] MEDS ORDERED: BENZ100C97 PO (12:01)
[2016-04-30 12:06] VITALS: BP 150/84; PULSE 93; RESP 18; TEMP 98; O2SAT 98
== END 2016-04-30 12:06 | disposition home or self-care (01) ==
LOC: ED 10:17
DX: R05 Cough (principal); R09.89 Other specified symptoms and signs involving the circulatory and respiratory systems
CPT/HCPCS: 87081; 87400; 87430

== ENCOUNTER → 2016-06-02 | Outpatient (CLI) | payer MEDICARE, OTHER ==
[~2016-06-02] MED LIST changes: +BENZ100C97 PO; +GABA-305 PO; -GABA-338 PO; +LETR2.5T4 PO; -PRAV20TA4 PO; +WARF5TAB6 PO
[2016-06-02 10:56] LABS: ALBUMIN 4.4 G/DL (3.5-5.0); ALBUMIN/GLOBULIN RATIO 1.4 RATIO (1.1-2.2); ALKALINE PHOSPHATASE 184 U/L (38-126); ALT (SGPT) 31 U/L (9-52); AST (SGOT) 42 U/L (14-36); TOTAL PROTEIN 7.6 G/DL (6.3-8.2)
[2016-06-03 02:36] LABS: LDL CHOLESTEROL,CALCULATED 52.4 (66-159); RISK FACTOR 1.9 RATIO (0-4.0); VLDL CHOLESTEROL 14.6 MG/DL (0-28)
== END ==
LOC: LAB 10:13
PROVIDERS: ATTEND Internal Medicine
DX: E78.5 Hyperlipidemia, unspecified (principal); I48.1 Persistent atrial fibrillation
CPT/HCPCS: 36415; 80061; 80076

== ENCOUNTER → 2016-06-04 | Outpatient (CLI) | payer MEDICARE, OTHER | LOC: WC.BC 11:27 | PROVIDERS: ATTEND Surgery | DX: Z12.31 Encounter for screening mammogram for malignant neoplasm of breast (principal); C50.912 Malignant neoplasm of unspecified site of left female breast; N64.89 Other specified disorders of breast | CPT/HCPCS: 77063; G0202 ==